=== PATIENT | male | born 1950 | race Caucasian/White ===

== ENCOUNTER 2021-12-26 23:30 | Observation (INO) ==
--- NOTE | 2021-12-26 23:55 | Emergency Department Note ---
Impression & Plan Stroke-like symptom ADMIT ED Provider Note HPI: The patient is a 71-year-old male with history of type 2 diabetes, hyperlipidemia, presents the emergency department with a chief complaint of left-sided weakness and numbness/tingling. Patient states that symptoms began 3.5 hours prior to arrival to the ED. Patient states that his symptoms began as some abnormal movements of his left hand, patient states that he felt like he could not control his left hand. Patient states that he had a tingling sensation radiating from the left side of his neck, states he also had tingling and a sensation "like my arm and leg were going to sleep on the left side". Patient denies any symptoms on his right side. On arrival here to the ED he does display some drift of the lower extremity with testing against gravity, also displays some slight ataxia on [id number] testing on the left side, otherwise he is well-appearing and in no acute distress, he is able to give me a lucid history, he is alert and oriented. ROS: - Neuro: Left-sided numbness/weakness *10 point review systems was conducted and is otherwise negative unless stated above *Outpatient medications and allergy history reviewed PE: General: Alert, NAD HEENT: Normocephalic, atraumatic Eyes: Extraocular eye movement is intact, no scleral erythema Pulmonary: Clear to auscultation bilaterally, no wheezing Cardio: Regular rate and rhythm GI: Abdomen is soft, nontender : No suprapubic tenderness MSK: No evidence of trauma or malformation of the extremities, no edema Skin: No evidence of rash Neuro: Alert, Very slight drift of the left lower extremity with testing against gravity, no drift of the bilateral upper extremities with testing against gravity, slight ataxia noted on [id number] testing on the left side, otherwise patient is with symmetrical facial movements and no other focal deficits Psychiatric: Cooperative quality assurance monitor final: - An order was placed for continuous cardiac monitoring - Patient was noted to be in Sinus rhythm with a rate of 75 ADDENDUM - Added by Sara Felix MD on 12/27/2021 12:50 AM (-07:00) Correction: Moderate nonspecific white matter changes. CT HEAD: No evidence of acute intracranial pathology. Moderate nonspecific oiler changes. No comparisons. Radiologist: Sara Felix MD Study ready at 00:27 and initial results transmitted at 00:30 Communications: Clear Time Type Notes 12/27/21 00:37 [address] Doctor Regarding [address] [place], called Dr. Harrison on 12/27 00:36 (- 04:00) CTA NECK: Negative CT angiogram of the neck. No comparisons. Radiologist: Sara Felix MD Study ready at 00:29 and initial results transmitted at 00:33 Communications: Clear Time Type Notes 12/27/21 00:36 Call Doctor Regarding Str al[place], called Dr. Harrison on 12/27 00:36 (- 04:00) Preliminary Findings Only See Final Report For Complete Findings CTA HEAD: Negative CT angiogram of the head. No comparisons. Radiologist: Sara Felix MD Study ready at 00:27 and initial results transmitted at 00:32 Communications: Clear Time Type Notes 12/27/21 00:36 Call Doctor Regarding Str alden, called Dr. Harrison on 12/27 00:36 (- 04:00) EKG: Rate: 67 Rhythm: Normal sinus rhythm Intervals: Within normal limits ST changes: No ST elevation Time: 0016 NIH STROKE SCALE: 1A: Level of consciousness Alert; keenly responsive 0 1B: Ask month and age Both questions right 0 1C: 'Blink eyes' & 'squeeze hands' Performs both tasks 0 2: Horizontal extraocular movements Normal 0 3: Visual byrne No visual loss 0 4: Facial palsy Normal symmetry 0 5A: Left arm motor drift No drift for 10 seconds 0 5B: Right arm motor drift No drift for 10 seconds 0 6A: Left leg motor drift Drift, but doesn't hit bed +1 6B: Right leg motor drift No drift for 5 seconds 0 7: Limb Ataxia Ataxia in 1 Limb +1 8: Sensation Normal; no sensory loss 0 9: Language/aphasia Normal; no aphasia 0 10: Dysarthria Normal 0 11: Extinction/inattention No abnormality 0 TOTAL NIH SCORE = 2 ADDENDUM - Added by Sara Felix MD on 12/27/2021 12:50 AM (-07:00) Correction: Moderate nonspecific white matter changes. CT HEAD: No evidence of acute intracranial pathology. Moderate nonspecific oiler changes. No comparisons. Radiologist: Sara Felix MD Study ready at 00:27 and initial results transmitted at 00:30 Communications: Clear Time Type Notes 12/27/21 00:37 Call Doctor Regarding Str alden, called Dr. Harrison on 12/27 00:36 (- 04:00) CTA HEAD: Negative CT angiogram of the head. No comparisons. Radiologist: Sara Felix MD Study ready at 00:27 and initial results transmitted at 00:32 Communications: Clear Time Type Notes 12/27/21 00:36 Call Doctor Regarding Str alden, called Dr. Harrison on 12/27 00:36 (- 04:00) CTA NECK: Negative CT angiogram of the neck. No comparisons. Radiologist: Sara Felix MD Study ready at 00:29 and initial results transmitted at 00:33 Communications: Clear Time Type Notes 12/27/21 00:36 Call Doctor Regarding Str alden, called Dr. Harrison on 12/27 00:36 (- 04:00) Medical Decision Making: Patient presented to the emergency department with concerning symptoms for stroke. Stated that he had some weakness and numbness/tingling on the left side of his body in the upper extremity and lower extremity that began approximately 3 to 3.5 hours prior To arrival here to the ED tonight. Shortly after my assessment stroke alert was activated, patient was sent to CT for CT imaging of the head as well as CT angiography. Fortunately this does not show any evidence of intracranial bleeding or evidence of large vessel occlusion. Patient was given an NIH stroke scale score of 2 for some left-sided ataxia as well as some left lower extremity drift. I did discuss the patient's presentation with on- call stroke neurology at [facility], Dr. Marks. Patient symptoms are mild at this time, although he is in the window he does also have a history of intracranial bleeding secondary to an amyloidosis disorder which the patient reports was last noted on imaging 3 years ago at a hospital in [place], [place].Given mild nature of symptoms in addition to history of intracranial b leeding patient is not considered a candidate for thrombolysis. Dr. Marks It expressed to me over the phone that he does have concern the patient likely experienced a lacunar infarct and should be admitted for MRI imaging and secondary stroke work-up. Patient was in agreement to this plan. Rec ommendation was made for the patient to be admitted and to start aspirin therapy. Patient declined aspirin therapy and states he was told not to take this secondary to his history of amyloidosis and intracranial bleeding. Therefore this was not given. On my reassessment the patient is hemodynamically stable, he has not had any worsening in his symptoms, he is in agreement for inpatient admission and likely for MRI imaging and neurology consultation tomorrow morning. [facility] was consulted for admission. * CRITICAL CARE TIME: (50) minutes - Management of strokelike symptoms within thrombolysis window requiring emergent evaluation and bedside NIH stroke scale to be performed, discussion with on-call neurology/stroke specialty service at tertiary care center, time spent at the bedside, arrangement of admission Diagnosis: 1. Strokelike episode 2. Left-sided numbness/tingling of upper extremity and lower extremity 3. Left-sided ataxia of the left upper extremity Disposition: ADMIT Saroj Alaniz DO Emergency Medicine Past Med/Surg History Medical History (Updated 12/27/21 @ 01:29 by Saroj Alaniz DO) Amyloid disease followed with [facility] in past/has not been in contact for a while. BPH (benign prostatic hyperplasia) Diabetes mellitus, type 2 Elevated PSA Fatty liver Hearing deficit History of COVID-19 loss of taste/smell--no issues now 02/2020 HTN (hypertension) Hyperlipidemia Hypothyroidism (acquired) Insect bite (nonvenomous), right ankle, initial encounter Loose bowel movements due to metformin IR Lumbar facet joint syndrome Lumbar spondylosis Mild acid reflux Obesity Osteoarthritis Sleep apnea CPAP Surgical History History of cardiac cath 2001 in [place]--no stents History of colonoscopy History of esophagogastroduodenoscopy (EGD) History of tooth extraction S/P appendectomy S/P cholecystectomy Family History Father Esophageal cancer Colorectal cancer Other No family history of adverse response to anesthesia Denies family history of Ovarian cancer Prostate cancer Myocardial infarction Breast cancer Social History Smoking Status: Former smoker Second Hand Exposure: Yes ( A CHILD); Hx Alcohol Use: Yes Hx Substance Use: No Preferred Language: [place] Communication Ability: Effective Visual Impairment: No Limitations Hearing Ability: Normal 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 Beliefs That Will Affect Care: None marital status: Current Living Situation: Spouse current occupational status: retired Feels Safe at Home: Yes Dental Care, Regularly: Yes Physical Activity Frequency: 1-2 Times per Week Seatbelt Use: always Assistive Devices: CPAP, Glasses and Hearing Aid - Bilateral Allergies Allergies Allergy/AdvReac Type Severity Reaction Status Date / Time aspirin AdvReac Severe contraindic Verified 12/13/21 13:13 ated Home Meds Home Medications Medication Instructions Recorded Confirmed magnesium oxide 500 mg capsule 500 mg PO DAILYBB 03/18/20 12/27/21 multivitamin 1 tab PO QPM 03/18/20 12/27/21 zinc 50 mg tablet 50 mg PO QPM 03/18/20 12/27/21 riboflavin (vitamin B2) 400 mg 400 mg PO QDL 08/19/20 12/27/21 tablet cholecalciferol (vitamin D3) 125 125 mcg PO DAILY 07/21/21 12/27/21 mcg (5,000 unit) tablet (Vitamin D3) cyanocobalamin (vitamin B-12) 1,000 mcg PO DAILY 07/21/21 12/27/21 1,000 mcg tablet naproxen sodium 220 mg capsule 220 mg PO BID PRN Pain 07/21/21 12/27/21 (Aleve) tamsulosin 0.4 mg capsule (Flomax) 0.8 mg PO QPM 12/27/21 12/27/21 Previous Rx's Medication Instructions Recorded atorvastatin 40 mg tablet (Lipitor) 40 mg PO QPM #90 tabs 05/10/21 gabapentin 100 mg capsule 100 mg PO DAILY PRN headaches #30 05/10/21 caps levothyroxine 150 mcg tablet 150 mcg PO QAM #90 tabs 05/10/21 liothyronine 5 mcg tablet (Cytomel) 5 mcg PO DAILYBB #90 tabs 05/10/21 metformin 500 mg tablet,extended 1,000 mg PO BID #180 tabs 05/10/21 release 24 hr pantoprazole 40 mg tablet,delayed 40 mg PO BID #180 tabs 07/15/21 release lancets 30 gauge (BD Ultra-Fine II #100 ea 08/18/21 Lancets) amlodipine 10 mg-benazepril 20 mg 1 cap PO QAM #90 caps 08/29/21 capsule (Lotrel) semaglutide 0.25 mg or 0.5 mg (2 0.5 mg (0.4 mL) subcut WK #1.5 mL 09/13/21 mg/1.5 mL) subcutaneous pen injector (Ozempic) Results & Data (ED) Vital Signs Vital Signs - 24 hr 12/26/21 23:33 12/27/21 00:52 Temperature 37.0 C Temperature Source Temporal Artery Scan Pulse Rate 73 Pulse Rate [Apical] 73 Respiratory Rate 18 18 Respiratory Depth Normal Normal Blood Pressure 135/84 Blood Pressure [Right Arm] 157/85 H Blood Pressure Mean 101 Blood Pressure Mean [Right Arm] 109 Pulse Oximetry 98 98 Oxygen Delivery Method Room Air Room Air Sepsis New/Unexplained Change in Mental Status N/A Sepsis Action Taken by Nursing No Action Required Laboratory Data Result diagrams: 12/27/21 00:02 12/27/21 00:02 Lab Results 12/27/21 12/27/21 12/27/21 Range/Units 00:02 00:02 00:02 WBC 7.03 (4.8-10.8) K/ul RBC 4.45 L (4.63-6.08) M/uL Hgb 13.2 L (14.0-18.0) g/dl Hct 39.7 L (40.1-51.0) % MCV 89.2 (80.0-100.0) fL MCH 29.7 (25.0-34.0) pg MCHC 33.2 (32.0-36.0) g/dL RDW Std Deviation 41.8 (36.4-46.3) fL RDW Coeff of Nanda 12.9 (11.5-14.5) % Plt Count 188 (130-400) K/uL MPV 9.6 (9.4-12.4) fL Immature Gran % (Auto) 0.6 % Neut % (Auto) 50.8 % Lymph % (Auto) 38.1 % [place] % (Auto) 8.1 % Eos % (Auto) 1.7 % Baso % (Auto) 0.7 % Neut # (Auto) 3.57 (1.4-6.5) K/uL Lymph # (Auto) 2.68 (1.2-3.4) K/uL [place] # (Auto) 0.57 (0.24-0.82) K/uL Eos # (Auto) 0.12 (0-0.50) K/uL Baso # (Auto) 0.05 (0-0.2) K/uL Immature Gran # (Auto) 0.04 H (0.00-0.02) K/uL PT 10.7 (9.0-12.0) Seconds INR 1.0 (0.9-1.1) APTT 28.0 (21.0-31.0) Seconds PTT Ratio 1.0 Sodium 139 (136-145) mmol/L Potassium 3.8 (3.5-5.1) mmol/L Chloride 105 (98-107) mmol/L Carbon Dioxide 27 (21-32) mmol/L Anion Gap 7 (3-11) BUN 18 (6-23) mg/dl Creatinine 1.06 (0.6-1.4) mg/dl Est Cr Clr Drug Dosing 81.0 ml/min Est GFR ( Amer) 82.6 ml/min Est GFR (Non-Af Amer) 71.3 ml/min BUN/Creatinine Ratio 17.0 (10-20) Glucose 129 H (70-99(Fasting)) mg/dl Calcium 9.7 (8.5-10.1) mg/dl Magnesium 1.7 (1.7-2.4) mg/dl Total Bilirubin 0.4 (0.2-1.0) mg/dl AST 14 (13-39) U/L ALT 32 (7-52) U/L Alkaline Phosphatase 79 (34-104) U/L Troponin I High Sens 2.5 (0-20) pg/ml Total Protein 6.4 (6.0-8.3) gm/dl Albumin 4.3 (3.4-5.0) gm/dl Globulin 2.1 L (2.5-4.0) gm/dl Albumin/Globulin Ratio 2.0 (0.9-2) SARS-CoV-2, RNA, NAAT (NEGATIVE) 12/27/21 Range/Units 00:33 WBC (4.8-10.8) K/ul RBC (4.63-6.08) M/uL Hgb (14.0-18.0) g/dl Hct (40.1-51.0) % MCV (80.0-100.0) fL MCH (25.0-34.0) pg MCHC (32.0-36.0) g/dL RDW Std Deviation (36.4-46.3) fL RDW Coeff of Nanda (11.5-14.5) % Plt Count (130-400) K/uL MPV (9.4-12.4) fL Immature Gran % (Auto) % Neut % (Auto) % Lymph % (Auto) % [place] % (Auto) % Eos % (Auto) % Baso % (Auto) % Neut # (Auto) (1.4-6.5) K/uL Lymph # (Auto) (1.2-3.4) K/uL [place] # (Auto) (0.24-0.82) K/uL Eos # (Auto) (0-0.50) K/uL Baso # (Auto) (0-0.2) K/uL Immature Gran # (Auto) (0.00-0.02) K/uL PT (9.0-12.0) Seconds INR (0.9-1.1) APTT (21.0-31.0) Seconds PTT Ratio Sodium (136-145) mmol/L Potassium (3.5-5.1) mmol/L Chloride (98-107) mmol/L Carbon Dioxide (21-32) mmol/L Anion Gap (3-11) BUN (6-23) mg/dl Creatinine (0.6-1.4) mg/dl Est Cr Clr Drug Dosing ml/min Est GFR ( Amer) ml/min Est GFR (Non-Af Amer) ml/min BUN/Creatinine Ratio (10-20) Glucose (70-99(Fasting)) mg/dl Calcium (8.5-10.1) mg/dl Magnesium (1.7-2.4) mg/dl Total Bilirubin (0.2-1.0) mg/dl AST (13-39) U/L ALT (7-52) U/L Alkaline Phosphatase (34-104) U/L Troponin I High Sens (0-20) pg/ml Total Protein (6.0-8.3) gm/dl Albumin (3.4-5.0) gm/dl Globulin (2.5-4.0) gm/dl Albumin/Globulin Ratio (0.9-2) SARS-CoV-2, RNA, NAAT NEGATIVE (NEGATIVE) Administered Medications Discontinued Medications Ioversol (Optiray 300 500ml) 125 ml IV ONCE ONE Stop: 12/27/21 00:20 Last Admin: 12/27/21 00:19 Dose: 112 ml Documented By: GUILLE Discharge Plan Visit Data Chief Complaint: Neck Injury/Pain Stated Complaint: PAIN IN LFT SIDE OF NECK GOING DOWN ARM TO LEG ED Provider: Saroj Alaniz Discharge Problem: Stroke-like symptom Forms Stand Alone Forms: My [facility] Prescriptions Prescriptions: No Action riboflavin (vitamin B2) 400 mg tablet 400 mg PO QDL pantoprazole 40 mg tablet,delayed release (DR/EC) 40 mg PO BID Qty: 180 1RF amlodipine-benazepril [Lotrel] 10-20 mg capsule 1 cap PO QAM Qty: 90 3RF (DME) lancets [BD Ultra-Fine II Lancets] 30 gauge misc See Rx Instructions .Route Qty: 100 0RF Rx Instructions: As directed Ozempic 0.25 mg or 0.5 mg(2 mg/1.5 mL) pen injector 0.5 mg subcut WK Qty: 1.5 5RF Rx Instructions: q Sunday gabapentin 100 mg capsule 100 mg PO DAILY PRN (Reason: headaches) Qty: 30 2RF levothyroxine 150 mcg tablet 150 mcg PO QAM Qty: 90 1RF atorvastatin [Lipitor] 40 mg tablet 40 mg PO QPM Qty: 90 3RF liothyronine [Cytomel] 5 mcg tablet 5 mcg PO DAILYBB Qty: 90 1RF metformin 500 mg tablet extended release 24 hr 1,000 mg PO BID Qty: 180 3RF zinc 50 mg Tablet 50 mg PO QPM magnesium oxide 500 mg Capsule 500 mg PO DAILYBB multivitamin Tablet 1 tab PO QPM cyanocobalamin (vitamin B-12) 1,000 mcg Tablet 1,000 mcg PO DAILY cholecalciferol (vitamin D3) [Vitamin D3] 125 mcg (5,000 unit) Tablet 125 mcg PO DAILY naproxen sodium [Aleve] 220 mg Capsule 220 mg PO BID PRN (Reason: Pain) tamsulosin [Flomax] 0.4 mg capsule 0.8 mg PO QPM Referrals Referrals: Rosy Montoya MD [Primary Care Provider] -
[2021-12-27] MEDS ORDERED: OPTIRAY 300 500mL IV ONE (00:19)
[2021-12-27 00:22] LABS: Basophils # (auto) 0.05 K/uL (0-0.2); Basophils % (auto) 0.7 %; Eosinophils # (auto) 0.12 K/uL (0-0.50); Eosinophils % (auto) 1.7 %; Hematocrit (blood only) 39.7 % (40.1-51.0); Hemoglobin 13.2 g/dl (14.0-18.0); Immature Granulocytes # (auto) 0.04 K/uL (0.00-0.02); Immature Granulocytes % (auto) 0.6 %; Lymphocytes # (auto) 2.68 K/uL (1.2-3.4); Lymphocytes % (auto) 38.1 %; Mean Corpuscular Hemoglobin 29.7 pg (25.0-34.0); Mean Corpuscular Hgb Conc 33.2 g/dL (32.0-36.0); Mean Corpuscular Volume 89.2 fL (80.0-100.0); Mean Platelet Volume 9.6 fL (9.4-12.4); Monocytes # (auto) 0.57 K/uL (0.24-0.82); Monocytes % (auto) 8.1 %; Neutrophils # (auto) 3.57 K/uL (1.4-6.5); Neutrophils % (auto) 50.8 %; Platelet Count 188 K/uL (130-400); RDW Coefficient of Variation 12.9 % (11.5-14.5); RDW Standard Deviation 41.8 fL (36.4-46.3); Red Blood Count 4.45 M/uL (4.63-6.08); White Blood Count 7.03 K/ul (4.8-10.8)
[2021-12-27 00:36] LABS: Prothrombin Time 10.7 Seconds (9.0-12.0)
[2021-12-27 00:47] LABS: Troponin I High Sensitivity 2.5 pg/ml (0-20)
[2021-12-27 00:58] LABS: Albumin Level 4.3 gm/dl (3.4-5.0); Bilirubin,Total 0.4 mg/dl (0.2-1.0); Calcium 9.7 mg/dl (8.5-10.1); Est GFR (African American) 82.6 ml/min; Est GFR (Non-African American) 71.3 ml/min; Globulin 2.1 gm/dl (2.5-4.0); Magnesium 1.7 mg/dl (1.7-2.4); Potassium 3.8 mmol/L (3.5-5.1); Total Protein 6.4 gm/dl (6.0-8.3)
[2021-12-27] MEDS ORDERED: ACETAMINOPHEN 325 MG TAB PO PRN (04:31)
[2021-12-27] MEDS ORDERED: DEXTROSE 50% 50 ML SYRINGE IV PRN (04:31)
[2021-12-27] MEDS ORDERED: PHARMACIST DISCHARGE MED REC CONSULT PRN (04:31)
[2021-12-27] MEDS ORDERED: GLUCOSE 40% GEL 15 GM TUBE PO PRN (04:31)
[2021-12-27] MEDS ORDERED: GABAPENTIN 100 MG CAP PO PRN (04:31)
[2021-12-27] MEDS ORDERED: ONDANSETRON INJ 2 MG/ML 2 ML VIAL IV PRN (04:31)
[2021-12-27] MEDS ORDERED: GLUCAGON FOR INJ 1 MG VIAL SQ PRN (04:31)
[2021-12-27] MEDS ORDERED: CARBOHYDRATES FOR HYPOGLYCEMIA PO PRN (04:31)
[2021-12-27] MEDS ORDERED: GLUCOSE 10 TAB/TUBE PO PRN (04:31)
--- NOTE | 2021-12-27 04:33 | History & Physical Report ---
Date of Service December 27, 2021 Assessment & Plan (1) Stroke-like symptom: Plan: Left-sided numbness and paresthesias/strokelike symptoms/history of hemorrhagic CVA with amyloid disease- [place] [facility]. Thought to have a CVA, but is not a candidate for treatment due to previous hemorrhagic CVA CT head negative, CTA head/neck negative He reports being told in the past that he should not be on aspirin due to his blood thinning effects, however, he has naproxen also listed as part of his medication list which he takes, and will hold the naproxen for now He describes intermittent left shoulder discomfort, and more concentrated numbness in his third, fourth and fifth finger on the left side Order MRI of brain, and MRI cervical spine Consult neurology as requested by [facility] [place] (2) Left sided numbness: Plan: See above (3) Amyloid disease: Plan: Reportedly followed by study group at [facility] (4) Diabetes mellitus: Plan: Hold metformin and semaglutide (5) Reflux esophagitis: Plan: Continue pantoprazole 40 mg twice daily (6) Hypothyroidism (acquired): Plan: Continue levothyroxine 150 mcg daily and liothyronine 5 mcg daily (7) Hyperlipidemia: Plan: Continue atorvastatin 40 mg every evening Check a fasting lipid panel (8) HTN (hypertension): Plan: Permissive hypertension (9) BPH (benign prostatic hyperplasia): Plan: Continue tamsulosin 0.8 mg daily in the evening (10) Sleep apnea: Plan: CPAP at bedtime 9 cmH2O History of Present Illness Chief Complaint: The patient presents to the emergency department due to complaint of the acute onset of left hand numbness and tingling like it was falling asleep, left shoulder pain, followed by numbness and tingling in his left leg, while he was watching Sunday Night football Primary Care Provider: Rosy Montoya MD The patient is a 71-year-old male with a past medical history including thoracic vertebral compression fractures, diabetes mellitus, right parotid gland mass, cerebral micro vasculopathy, lumbar degenerative disc disease, reflux esophagitis, fatty liver, sleep apnea with CPAP 9 cm setting, lumbar facet joint syndrome, amyloid disease causing hemorrhagic CVA, hypertension, hyperlipidemia and hypothyroidism. The patient was initially assessed by the ED as a stroke alert, with supervision by [facility] telestroke neurology, who determined that the patient likely had a stroke, but was not a candidate for intervention due to previous history of hemorrhagic CVA. Allergies Allergy/AdvReac Type Severity Reaction Status Date / Time aspirin AdvReac Severe contraindic Verified 12/13/21 13:13 ated Home Medications Medication Instructions Recorded Confirmed Type magnesium oxide 500 mg capsule 500 mg PO DAILYBB 03/18/20 12/27/21 History multivitamin 1 tab PO QPM 03/18/20 12/27/21 History zinc 50 mg tablet 50 mg PO QPM 03/18/20 12/27/21 History riboflavin (vitamin B2) 400 mg 400 mg PO QDL 08/19/20 12/27/21 History tablet atorvastatin 40 mg tablet (Lipitor) 40 mg PO QPM #90 tabs 05/10/21 12/27/21 Rx gabapentin 100 mg capsule 100 mg PO DAILY PRN headaches #30 05/10/21 12/27/21 Rx caps levothyroxine 150 mcg tablet 150 mcg PO QAM #90 tabs 05/10/21 12/27/21 Rx liothyronine 5 mcg tablet (Cytomel) 5 mcg PO DAILYBB #90 tabs 05/10/21 12/27/21 Rx metformin 500 mg tablet,extended 1,000 mg PO BID #180 tabs 05/10/21 12/27/21 Rx release 24 hr pantoprazole 40 mg tablet,delayed 40 mg PO BID #180 tabs 07/15/21 12/27/21 Rx release cholecalciferol (vitamin D3) 125 125 mcg PO DAILY 07/21/21 12/27/21 History mcg (5,000 unit) tablet (Vitamin D3) cyanocobalamin (vitamin B-12) 1,000 mcg PO DAILY 07/21/21 12/27/21 History 1,000 mcg tablet naproxen sodium 220 mg capsule 220 mg PO BID PRN Pain 07/21/21 12/27/21 History (Aleve) lancets 30 gauge (BD Ultra-Fine II #100 ea 08/18/21 12/27/21 Rx Lancets) amlodipine 10 mg-benazepril 20 mg 1 cap PO QAM #90 caps 08/29/21 12/27/21 Rx capsule (Lotrel) semaglutide 0.25 mg or 0.5 mg (2 0.5 mg (0.4 mL) subcut WK #1.5 mL 09/13/21 12/27/21 Rx mg/1.5 mL) subcutaneous pen injector (Ozempic) tamsulosin 0.4 mg capsule (Flomax) 0.8 mg PO QPM 12/27/21 12/27/21 History Past Med/Surg History Medical History (Updated 12/27/21 @ 04:41 by Shelton Rocha MD) Amyloid disease followed with [facility] in past/has not been in contact for a while. BPH (benign prostatic hyperplasia) Diabetes mellitus, type 2 Elevated PSA Fatty liver Hearing deficit History of COVID-19 loss of taste/smell--no issues now 02/2020 HTN (hypertension) Hyperlipidemia Hypothyroidism (acquired) Insect bite (nonvenomous), right ankle, initial encounter Loose bowel movements due to metformin IR Lumbar facet joint syndrome Lumbar spondylosis Mild acid reflux Obesity Osteoarthritis Sleep apnea CPAP Surgical History History of cardiac cath 2000 in [place]--no stents History of colonoscopy History of esophagogastroduodenoscopy (EGD) History of tooth extraction S/P appendectomy S/P cholecystectomy Family History Father Esophageal cancer Colorectal cancer Other No family history of adverse response to anesthesia Denies family history of Ovarian cancer Prostate cancer Myocardial infarction Breast cancer Social History Smoking Status: Former smoker Second Hand Exposure: Yes ( A CHILD); Hx Alcohol Use: Yes Hx Substance Use: No Preferred Language: Tanzanian Communication Ability: Effective Visual Impairment: No Limitations Hearing Ability: Normal Photographic Spotter Required: No Beliefs That Will Affect Care: None marital status: Current Living Situation: Spouse current occupational status: retired Feels Safe at Home: Yes Dental Care, Regularly: Yes Physical Activity Frequency: 1-2 Times per Week Seatbelt Use: always Assistive Devices: CPAP, Glasses and Hearing Aid - Bilateral Review of Systems Review of Systems: The patient denies chest pain, palpitations, shortness of breath, dyspnea on exertion, cough, lower extremity swelling, sore throat, fevers, chills, sweats, weight change, fatigue, nausea, vomiting, diarrhea , constipation, abdominal pain, pelvic pain, blood in urine or stool, dysuria, urinary frequency or urgency, lightheadedness, dizziness or headache, memory loss, loss of consciousness, rash, abnormal bruising or bleeding, imbalance, focal or generalized weakness, numbness or tingling right arm or leg, generalized arthralgias or myalgias, or night sweats. The review of systems is otherwise negative other than for that already noted above, and at least 10 systems have been reviewed. Physical Exam Physical Exam: The patient is awake, alert and oriented 3, well developed and well nourished, normocephalic and atraumatic, lying in bed and in no acute d istress. HEENT--PERRL, EOMI, mucous membranes and oropharynx normal. Neck--supple. No JVD. No bruits. Thyroid normal, trachea midline, no adenopathy. Heart--normal S1 and S2. No murmurs, rubs or gallops. Lungs--clear bilaterally, no respiratory distress, no accessory muscle use. Abdomen--normal bowel sounds and soft. Nontender. Nondistended, no hernias or masses, no organomegaly. Obese Extremities--no cyanosis or clubbing. No edema. Dermatologic--normal skin turgor, normal color, no abnormal lymph nodes, no rash. Neurologic--cranial nerves II through XII grossly intact. Rheumatologic--normal range of motion. Psychiatric--normal affect. Results & Data Results & Data ([facility]) Vital Signs (Past 12 Hours) Vital Signs Temp Pulse Pulse Resp BP BP Pulse Ox 12/27/21 03:11 68 18 148/84 H 94 12/27/21 02:14 67 16 123/75 97 12/27/21 00:52 73 18 157/85 H 98 12/26/21 23:33 37.0 C 73 18 135/84 98 O2 Del Method 12/27/21 03:11 Room Air 12/27/21 02:14 Room Air 12/27/21 00:52 Room Air 12/26/21 23:33 Room Air Laboratory Results Laboratory Results WBC 7.03 K/ul (4.8-10.8) 12/27/21 00:02 RBC 4.45 M/uL (4.63-6.08) L 12/27/21 00:02 Hgb 13.2 g/dl (14.0-18.0) L 12/27/21 00:02 Hct 39.7 % (40.1-51.0) L 12/27/21 00:02 MCV 89.2 fL (80.0-100.0) 12/27/21 00:02 MCH 29.7 pg (25.0-34.0) 12/27/21 00:02 MCHC 33.2 g/dL (32.0-36.0) 12/27/21 00:02 RDW Std Deviation 41.8 fL (36.4-46.3) 12/27/21 00:02 RDW Coeff of Nanda 12.9 % (11.5-14.5) 12/27/21 00:02 Plt Count 188 K/uL (130-400) 12/27/21 00:02 MPV 9.6 fL (9.4-12.4) 12/27/21 00:02 Immature Gran % (Auto) 0.6 % 12/27/21 00:02 Neut % (Auto) 50.8 % 12/27/21 00:02 Lymph % (Auto) 38.1 % 12/27/21 00:02 [place] % (Auto) 8.1 % 12/27/21 00:02 Eos % (Auto) 1.7 % 12/27/21 00:02 Baso % (Auto) 0.7 % 12/27/21 00:02 Neut # (Auto) 3.57 K/uL (1.4-6.5) 12/27/21 00:02 Lymph # (Auto) 2.68 K/uL (1.2-3.4) 12/27/21 00:02 [place] # (Auto) 0.57 K/uL (0.24-0.82) 12/27/21 00:02 Eos # (Auto) 0.12 K/uL (0-0.50) 12/27/21 00:02 Baso # (Auto) 0.05 K/uL (0-0.2) 12/27/21 00:02 Immature Gran # (Auto) 0.04 K/uL (0.00-0.02) H 12/27/21 00:02 PT 10.7 Seconds (9.0-12.0) 12/27/21 00:02 INR 1.0 (0.9-1.1) 12/27/21 00:02 APTT 28.0 Seconds (21.0-31.0) 12/27/21 00:02 PTT Ratio 1.0 12/27/21 00:02 Sodium 139 mmol/L (136-145) 12/27/21 00:02 Potassium 3.8 mmol/L (3.5-5.1) 12/27/21 00:02 Chloride 105 mmol/L (98-107) 12/27/21 00:02 Carbon Dioxide 27 mmol/L (21-32) 12/27/21 00:02 Anion Gap 7 (3-11) 12/27/21 00:02 BUN 18 mg/dl (6-23) 12/27/21 00:02 Creatinine 1.06 mg/dl (0.6-1.4) 12/27/21 00:02 Est Cr Clr Drug Dosing 81.0 ml/min 12/27/21 00:02 Est GFR ( Amer) 82.6 ml/min 12/27/21 00:02 Est GFR (Non-Af Amer) 71.3 ml/min 12/27/21 00:02 BUN/Creatinine Ratio 17.0 (10-20) 12/27/21 00:02 Glucose 129 mg/dl (70-99(Fasting)) H 12/27/21 00:02 Calcium 9.7 mg/dl (8.5-10.1) 12/27/21 00:02 Magnesium 1.7 mg/dl (1.7-2.4) 12/27/21 00:02 Total Bilirubin 0.4 mg/dl (0.2-1.0) 12/27/21 00:02 AST 14 U/L (13-39) 12/27/21 00:02 ALT 32 U/L (7-52) 12/27/21 00:02 Alkaline Phosphatase 79 U/L (34-104) 12/27/21 00:02 Troponin I High Sens 2.5 pg/ml (0-20) 12/27/21 00:02 Total Protein 6.4 gm/dl (6.0-8.3) 12/27/21 00:02 Albumin 4.3 gm/dl (3.4-5.0) 12/27/21 00:02 Globulin 2.1 gm/dl (2.5-4.0) L 12/27/21 00:02 Albumin/Globulin Ratio 2.0 (0.9-2) 12/27/21 00:02 SARS-CoV-2, RNA, NAAT NEGATIVE (NEGATIVE) 12/27/21 00:33 Diagnostic Findings [facility] Patient: MICHELLE MOON (Male) : 54 Status: ER Date: 12/27/21 00:22 Room #: History: NUMBNESS ON LEFT SIDE OF BODY Slices:A 67 Priors: Tech: AngelaTrue chaparro @ [phone] Exams: CT HEAD Contrast: Accession Numbers: [id number] Referring Physician: REFERRED SELF Preliminary Findings Only See Final Report For Complete Findings ADDENDUM - Added by Sara Felix MD on 12/27/2021 12:50 AM (-07:00) Correction: Moderate nonspecific white matter changes. CT HEAD: No evidence of acute intracranial pathology. Moderate nonspecific oiler changes. No comparisons. Radiologist: Sara Felix MD Study ready at 00:27 and initial results transmitted at 00:30 Communications: Clear Time Type Notes 12/27/21 00:37 Call Doctor Regarding Regine ruano, called Dr. Harrison on 12/27 00:36 (-04:00) *This report constitutes a preliminary interpretation only. Non-acute findings felt to be unrelated to the clinical presentation may not be discussed in this report. The study will be interpreted and a final report will be generated by the local Radiologist the following shift. To reach the hospital radiology department call [phone]. If a discrepancy is found between the preliminary and final interpretations of this study, please notify us via our Client Portal at [email or web address], under QA Exams. You can also fax this report with a description of the discrepancy, or include the final report, to our daytime fax number [phone]. If faxing, please indicate the severity of discrepancy using one of the following categories: [ ] 1 - Agree/Informational [ ] 2 - Unlikely to Affect Management [ ] 3 - Possible Eventual Change of Management [ ] 4 - Probable Immediate Change of Management For all other patient related information, please fax us at [phone]. [id number] [facility] Patient: MICHELLE MOON (Male) : 54 Status: ER Date: 12/27/21 00:22 Room #: History: NUMBNESS ON LEFT SIDE OF BODY Slices: 518 Priors: Arley: True Oglesby @ [phone] Exams: CTA HEAD Contrast: IV Amt: 112 ML OPTIRAY 300 Accession Numbers: [id number] Referring Physician: REFERRED SELF Preliminary Findings Only See Final Report For Complete Findings CTA HEAD: Negative CT angiogram of the head. No comparisons. Radiologist:Mahamed Felix MD Study ready at 00:27 and initial results transmitted at 00:32 Communications: Clear Time Type Notes 12/27/21 00:36 Call Doctor Jenelle Regine ruano, called Dr. Harrison on 12/27 00:36 (-04:00) *This report constitutes a preliminary interpretation only. Non-acute findings felt to be unrelated to the clinical presentation may not be discussed in this report. The study will be interpreted and a final report will be generated by the local Radiologist the following shift. To reach the [facility] radiology department call [phone]. If a discrepancy is found between the preliminary and final interpretations of this study, please notify us via our Client Portal at [email or web address], under QA Exams. You can also fax this report with a description of the discrepancy, or include the final report, to our daytime fax number [phone]. If faxing, please indicate the severity of discrepancy using one of the following categories: [ ] 1 - Agree/Informational [ ] 2 - Unlikely to Affect Management [ ] 3 - Possible Eventual Change of Management [ ] 4 - Probable Immediate Change of Management For all other patient related information, please fax us at [phone]. [id number] [facility] Patient: MICHELLE MOON (Male) : 54 Status: ER Date: 12/27/21 00:23 Room #: History: NUMBNESS ON LEFT SIDE OF BODY Slices: 708 Priors: Arley: True Oglesby @ [phone] Exams: CTA NECK Contrast: IV Amt: 112 ML OPTIRAY 300 Accession Numbers: [id number] Referring Physician: REFERRED SELF Preliminary Findings Only See Final Report For Complete Findings CTA NECK: Negative CT angiogram of the neck. No comparisons. Radiologist: Sara Felix MD Study ready at 00:29 and initial results transmitted at 00:33 Communications: Clear Time Type Notes 12/27/21 00:36 Call Doctor Regarding Regine alden, called Dr. Harrison on 12/27 00:36 (-04:00) *This report constitutes a preliminary interpretation only. Non-acute findings felt to be unrelated to the clinical presentation may not be discussed in this report. The study will be interpreted and a final report will be generated by the local Radiologist the following shift. To reach the [facility] radiology department call [phone]. If a discrepancy is found between the preliminary and final interpretations of this study, please notify us via our Client Portal at [email or web address], under QA Exams. You can also fax this report with a description of the discrepancy, or include the final report, to brandon almanzar fax number [phone]. If faxing, please indicate the severity of discrepancy using one of the following categories: [ ] 1 - Agree/Informational [ ] 2 - Unlikely to Affect Management [ ] 3 - Possible Eventual Change of Management [ ] 4 - Probable Immediate Change of Management For all other patient related information, please fax us at [phone]. [id number] Code Status & VTE Plan Code Status Full code VTE Prophylaxis Plan VTE Prophylaxis will be ordered: Yes PG Care Time/CCT Total # of Minutes Spent Total Time Spent with Patient: Total time spent is greater than 50% in coordination of care (as documented) at patient's floor/unit and/or counseling patient: Coding Level of Care Code INT OBSERVATION CARE 72M LVL 3 Diagnoses Stroke-like symptom R29.90 Left sided numbness R20.0 Amyloid disease E85.9 Diabetes mellitus E11.9 Reflux esophagitis K21.00 Hypothyroidism (acquired) E03.9 Hyperlipidemia E78.5 HTN (hypertension) I10 BPH (benign prostatic hyperplasia) N40.0 Sleep apnea G47.30
[2021-12-27 04:53] LABS: Basophils # (auto) 0.03 K/uL (0-0.2); Basophils % (auto) 0.5 %; Eosinophils # (auto) 0.13 K/uL (0-0.50); Eosinophils % (auto) 2.2 %; Hematocrit (blood only) 40.8 % (40.1-51.0); Hemoglobin 13.8 g/dl (14.0-18.0); Immature Granulocytes # (auto) 0.04 K/uL (0.00-0.02); Immature Granulocytes % (auto) 0.7 %; Lymphocytes # (auto) 2.24 K/uL (1.2-3.4); Lymphocytes % (auto) 37.9 %; Mean Corpuscular Hemoglobin 29.9 pg (25.0-34.0); Mean Corpuscular Hgb Conc 33.8 g/dL (32.0-36.0); Mean Corpuscular Volume 88.5 fL (80.0-100.0); Mean Platelet Volume 9.3 fL (9.4-12.4); Monocytes # (auto) 0.43 K/uL (0.24-0.82); Monocytes % (auto) 7.3 %; Neutrophils # (auto) 3.04 K/uL (1.4-6.5); Neutrophils % (auto) 51.4 %; Platelet Count 180 K/uL (130-400); RDW Coefficient of Variation 12.9 % (11.5-14.5); RDW Standard Deviation 41.7 fL (36.4-46.3); Red Blood Count 4.61 M/uL (4.63-6.08); White Blood Count 5.91 K/ul (4.8-10.8)
[2021-12-27 05:03] LABS: Prothrombin Time 10.8 Seconds (9.0-12.0)
[2021-12-27 05:18] LABS: Albumin Globulin Ratio 2.2 (0.9-2); Albumin Level 4.3 gm/dl (3.4-5.0); BUN Creatinine Ratio 17.3 (10-20); Bilirubin,Total 0.4 mg/dl (0.2-1.0); Calcium 9.5 mg/dl (8.5-10.1); Chol HDL Ratio 3.2 (0-5); Creatinine Clr Calc Pharmacy 89.1 ml/min; Est GFR (African American) 90.8 ml/min; Est GFR (Non-African American) 78.4 ml/min; Total Protein 6.3 gm/dl (6.0-8.3)
[2021-12-27 05:24] LABS: Troponin I High Sensitivity 2.8 pg/ml (0-20)
[2021-12-27] MEDS: MAGNESIUM OXIDE 400 MG TAB PO SCH (06:19)
[2021-12-27] MEDS: LIOTHYRONINE SODIUM 5 MCG TAB PO SCH (06:19)
[2021-12-27] MEDS: LEVOTHYROXINE SODIUM 150 MCG TABLET PO SCH (06:20)
--- NOTE | 2021-12-27 07:11 | CT Scan Report ---
HEAD CT NONCONTRAST CT DOSE: HISTORY: Left-sided numbness. Stroke Like Symptoms TECHNIQUE: Multiaxial CT images of the head were performed without the use of intravenous contrast. A utomated exposure control was utilized for this study. A dose lowering technique was utilized adheri ng to the principles of ALARA. Comparison: None. Findings: The paranasal sinuses and mastoid air cells are clear. The calvarium and skull base are int act. There is no mass, hematoma, midline shift, acute infarct. White matter hypodensity is nonspecifi c but suggestive of microvascular ischemic change. The ventricles and sulci demonstrate mild age-rela manisha involutional changes. Impression: No acute intracranial abnormality. Atrophy and microvascular ischemic changes. ACT 112: Negative or not required by law. Electronically signed by: Phil Velasco M.D. 12/27/2021 7:08 AM
--- NOTE | 2021-12-27 07:14 | CT Scan Report ---
CT angio neck with con, CT angio head w con CLINICAL HISTORY: 71 years-old Male with Stroke Like Symptoms. Acute strokelike symptoms COMPARISON STUDY: Brain MRI 12/27/2021, chest CT 06/18/2020, 03/18/2020 TECHNIQUE: Following the IV admi nistration of 112 mL of Optiray, CT angiogram of the head and neck was performed from the aortic arch to the skull apex. Images are reviewed in the axial, sagittal, and coronal planes. 3-D MIPS images a re created and assessed. IV contrast was administered without complication. All measurements were marshall culated based on NASCET criteria. A dose lowering technique was utilized adhering to the principles of ALARA. CT DOSE: 1276.24 mGy.cm FINDINGS: Age-related involutional changes with chronic microvascular ischemic disease. Three-vessel morphology of the thoracic aortic arch. Patency of the innominate and imaged subclavian arteries. The common and internal carotid arteries are patent. There is atherosclerotic plaque of the left greater than right carotid bulbs and proximal cervical segments of the internal carotid arterie s without significant stenosis. The middle and anterior cerebral arteries are patent. Dominant left v ertebral artery. Developmentally diminutive right vertebral artery. The basilar and posterior cerebra l arteries are widely patent. Cerebral venous sinuses are patent. There is no abnormal intracranial e nhancement. No aneurysm, dissection, high-grade stenosis or arterial occlusion. Lung apices are clear without pneumothorax. Mild pulmonary emphysema. There are a few tiny subpleural nodular foci of the lung apices measuring up to 4 mm which are likely benign. 6 mm groundglass nodul e of the left upper lobe, image 36. 9 mm hypodense left-sided thyroid nodule. Degenerative changes of the cervical spine. IMPRESSION: 1. No aneurysm, dissection, high-grade stenosis or arterial occlusion. 2. 6 mm groundglass nodule of the left upper lobe is stable compared to the 06/18/2020 study. Please refer to below summary of Fleischner criteria recommendations for follow-up of incidental CT n odules (Mahamed Hidalgo, Guidelines for management of small pulmonary nodules detected on CT scans: A sta tement from the Fleischner Society, Radiology 237: [phone].) Note: newly detected indeterminate nodule in persons 35 years of age or older. * Low risk patients: minimal or absent history of smoking and/or other known risk factors * high risk patients: history of smoking or of other known risk factors (e.g. first degree relative with lung cancer, or exposure to asbestos, radon, uranium) * if a nodule up to 8 mm is partly solid or is ground glass further follow-up is required after 24 m onths to exclude possible slow growing adenocarcinoma (HUSSAIN) SUBSOLID NODULES Solitary pure ground-glass nodule * nodule size <6 mm - no CT follow-up required * nodule size >=6 mm - follow-up CT at 6-12 months, then every 2 years until 5 years ACT 112: Negative or not required by law. The above report was generated using voice recognition software. It may contain grammatical, syntax o r spelling errors. Electronically signed by: Neno Santoyo M.D. 12/27/2021 7:13 AM
--- NOTE | 2021-12-27 07:26 | Magnetic Resonance Report ---
Brain MRI WITHOUT CONTRAST HISTORY: Stroke-like symptoms TECHNIQUE: Multiplanar multisequence MRI of the brain was performed without the use of contrast. COMPARISON STUDY: Head CT 12/27/2021. FINDINGS: There is no mass, hematoma, midline shift, or acute infarct. The paranasal sinuses are adrian r. The mastoid air cells are clear. The ventricles and sulci demonstrate moderate age-related involut ional changes. Scattered foci of T2 hyperintensity seen within the periventricular and subcortical wh ite matter are nonspecific but suggestive of mild microvascular ischemic changes. The major vascular flow voids at the skull base are well-maintained. IMPRESSION: No acute intracranial abnormality. Scattered foci of T2 hyperintensity seen within the periventricula r and subcortical white matter are nonspecific but favor moderate microvascular ischemic change. ACT 112: Negative or not required by law. Electronically signed by: Phil Velasco M.D. 12/27/2021 7:24 AM
[2021-12-27 08:29] LABS: Estimated Average Glucose 148 mg/dl; Hemoglobin A1C 6.8 % (4.5-5.6)
[2021-12-27] MEDS ORDERED: ENALAPRIL MALEATE 10 MG TAB PO SCH (09:00)
--- NOTE | 2021-12-27 09:36 | Magnetic Resonance Report ---
MR cervical spine wo con HISTORY: 71 years-old Male LUE radiculopathy symptoms acute neck pain with left upper extremity numb ness. COMPARISON: CTA neck 12/27/2021 TECHNIQUE: Multiplanar multisequence MRI of the cervical spine was obtained without the use of IV con trast. FINDINGS: The coffee shop attendant localizer images demonstrate no gross extraspinal abnormality. The study is motion degraded . The imaged posterior fossa structures appear unremarkable. There is normal signal within the visual ized cervical and imaged thoracic spinal cord. No acute fracture, subluxation, endplate erosion or ma rrow replacing process. C2-C3: Mild intervertebral disc space narrowing with uncovertebral hypertrophy and moderate facet art hrosis. The central canal and neural foramina appear patent. C3-C4: Mild to moderate intervertebral disc space narrowing with uncovertebral hypertrophy and business account executive ior disc osteophyte complex with moderate facet arthrosis. There is flattening of the ventral thecal sac without significant central canal stenosis. Moderate left with moderate to severe right neural fo raminal narrowing. C4-C5: Mild to moderate intervertebral disc space narrowing with uncovertebral hypertrophy and small posterior disc osteophyte complex with moderate to severe facet arthrosis and trace facet effusions. Mild central canal stenosis, AP dimension of the thecal sac measuring 8 mm. Moderate right with mild- to-moderate left neural foraminal narrowing. C5-C6: Moderate intervertebral disc space narrowing with uncovertebral hypertrophy and small posterio r disc osteophyte complex with moderate facet arthrosis. Mild central canal stenosis, AP dimension of the thecal sac measuring 8 mm. Severe bilateral foraminal stenosis. C6-C7: Mild to moderate intervertebral disc space narrowing with circumferential annular disc bulge, spondylitic spurring and uncovertebral hypertrophy with moderate facet arthrosis. Flattening of the v entral thecal sac without significant central canal stenosis. Mild right with moderate to severe left neural foraminal narrowing. C7-T1: Mild intervertebral disc space narrowing with moderate facet arthrosis. No central canal or ne ural foraminal narrowing. IMPRESSION: 1. Motion degraded exam. 2. No acute fracture or bone marrow edema. 3. Normal signal of the cervical spinal cord. 4. Discogenic degeneration with facet arthrosis as above resulting in multilevel neural foraminal gui rowing with mild central canal stenosis of the mid cervical spine. ACT 112: Negative or not required by law. The above report was generated using voice recognition software. It may contain grammatical, syntax o r spelling errors. Dictated: 12/27/2021 9:06 AM Transcribed: 12/27/2021 9:28 AM [place] [id number] [email or web address] Electronically signed by: Neno Santoyo M.D. 12/27/2021 9:34 AM
[2021-12-27] MEDS: INSULIN ASPART PER UNIT SC SCH ×4 (09:56→20:56)
[2021-12-27] MEDS: amLODIPine BESYLATE 5 MG TAB PO SCH (09:57)
[2021-12-27] MEDS: PANTOprazole 40 MG TAB PO SCH ×2 (09:57→20:55)
[2021-12-27] MEDS: CHOLECALCIFEROL 5,000 UNITS 125 MCG TAB PO SCH (09:57)
[2021-12-27] MEDS: CYANOCOBALAMIN (B-12) 500 MCG TABLET PO SCH (09:57)
--- NOTE | 2021-12-27 11:05 | Neurology Consultation ---
Date of Consultation December 27, 2021 Assessment & Plan (1) Left hemiparesis: (2) Left sided numbness: (3) Cervical spinal stenosis: (4) Cerebral amyloid angiopathy: Plan patient has a acute onset of left arm greater than leg numbness and tingling and left arm greater than leg clumsiness and weakness diffusely starting the evening of December 26. Although this is very consistent with a small stroke, there is no evidence of acute stroke on MRI. However, there is evidence of old small vessel ischemic disease of a moderate nature. He has risk factors for stroke including former cigarette smoker (quit in 1983), hypertension, diabetes, and dyslipidemia. The patient has mild spinal stenosis at multiple levels from disc in bone as noted on MRI of the cervical spine. Unless the cord is grossly impinged this could not affect the leg. Nevertheless, a spinal cord origin to his symptoms is possible. Finally, the patient has a diagnosis of cerebral amyloid angiopathy made 8 years ago by other clinicians. He has been warned not to be on anticoagulation. Recommendations: 1. Physical, occupational therapy. Increase activity as able. 2. 81 mg aspirin tablet daily. 3. Repeat MRI of the brain with attention to the brainstem, tomorrow, to see if there is something that shows up that was not present on this 1. 4. control blood pressure as you are doing keeping mean arterial pressure of approximately 95-100. 5.Patient would be a statin candidate because of his cerebral amyloid angiopathy, he would not be high dose statin candidate. I will make additional recommendations after the repeat MRI depending on his clinical course. Overall, I spent a total of 90 minutes with this case including review of records, review of MRI films, direct evaluation the patient bedside, and discussing the case with the patient and RN at bedside, and Dr. Villegas including differential diagnosis and treatment options. History of Present Illness Reason for Consultation: Patient is a 71-year-old, who I was asked to see at the request of Dr. Rocha, for neurologic consultation regarding left-sided weakness and numbness. Requesting Physician: Dr. Rocha Attending Physician: Rosy Chun, DO History of Present Illness this patient does have a history of type 2 diabetes, hypertension, and dyslipidemia. He has no history of heart disease or previous stroke. However, 8 years ago when in [place], [place], he had significant headaches of an unusual nature, and was evaluated by a neurologist (who consulted with Dr. Horne from [place]) and a final diagnosis of amyloid angiopathy. He carries this as a medical alert around his neck and has been told not to be on any anticoagulants because he could bleed easily. Apparently, at that time, his MRI showed hemorrhage of varying degrees. he was treated with 1 year of high dose steroids which helped his headaches and then they were tapered off. He has not had any other episodes or significant headaches since . The patient was watching football on TV the evening of December 26. Around 2029, he noted the onset of tingling in his left hand. This tingling over the course of a half an hour went all the way up to his neck on the left side. He did not have neck pain. There was a little bit of weakness in that right arm. By 2229, he noted more weakness in the left upper extremity and left lower extremity was weak and somewhat tingly. He arrived to the emergency room at 3, with a temperature 37.0, pulse 73, respiratory rate 18, blood pressure 135/84, and O2 saturation 98%. NIH stroke scale was 2 for limb weakness and ataxia. CT scan of the head was unremarkable. CT angiography of the head and neck showed no significant vessel stenoses or anomalies but there was a 6 mm stable nodule in the left upper lobe as seen June 2020. MRI of the brain showed no stroke but there was moderate old small vessel ischemic disease. I reviewed these films. MRI of the cervical spine showed degenerative changes with some mild diffuse spinal stenosis from disc and bone at multiple levels but the cord did not seem to be impinged. I reviewed these films. CBC was unremarkable. Chem profile was unremarkable as well. Hemoglobin A1c was 6.8 and triglycerides were 208. Total cholesterol was 131. he has been in normal sinus rhythm in the 70s and 80s. He feels slightly improved in his left lower extremity, but has left upper extremity still has weakness and tingling. Allergies Allergy/AdvReac Type Severity Reaction Status Date / Time aspirin AdvReac Severe contraindic Verified 12/13/21 13:13 ated Home Medications Medication Instructions Recorded Confirmed Type magnesium oxide 500 mg capsule 500 mg PO DAILYBB 03/18/20 12/27/21 History multivitamin 1 tab PO QPM 03/18/20 12/27/21 History zinc 50 mg tablet 50 mg PO QPM 03/18/20 12/27/21 History riboflavin (vitamin B2) 400 mg 400 mg PO QDL 08/19/20 12/27/21 History tablet atorvastatin 40 mg tablet (Lipitor) 40 mg PO QPM #90 tabs 05/10/21 12/27/21 Rx gabapentin 100 mg capsule 100 mg PO DAILY PRN headaches #30 05/10/21 12/27/21 Rx caps levothyroxine 150 mcg tablet 150 mcg PO QAM #90 tabs 05/10/21 12/27/21 Rx liothyronine 5 mcg tablet (Cytomel) 5 mcg PO DAILYBB #90 tabs 05/10/21 12/27/21 Rx metformin 500 mg tablet,extended 1,000 mg PO BID #180 tabs 05/10/21 12/27/21 Rx release 24 hr pantoprazole 40 mg tablet,delayed 40 mg PO BID #180 tabs 07/15/21 12/27/21 Rx release cholecalciferol (vitamin D3) 125 125 mcg PO DAILY 07/21/21 12/27/21 History mcg (5,000 unit) tablet (Vitamin D3) cyanocobalamin (vitamin B-12) 1,000 mcg PO DAILY 07/21/21 12/27/21 History 1,000 mcg tablet naproxen sodium 220 mg capsule 220 mg PO BID PRN Pain 07/21/21 12/27/21 History (Aleve) lancets 30 gauge (BD Ultra-Fine II #100 ea 08/18/21 12/27/21 Rx Lancets) amlodipine 10 mg-benazepril 20 mg 1 cap PO QAM #90 caps 08/29/21 12/27/21 Rx capsule (Lotrel) semaglutide 0.25 mg or 0.5 mg (2 0.5 mg (0.4 mL) subcut WK #1.5 mL 09/13/21 12/27/21 Rx mg/1.5 mL) subcutaneous pen injector (Ozempic) tamsulosin 0.4 mg capsule (Flomax) 0.8 mg PO QPM 12/27/21 12/27/21 History Patient History Medical History Amyloid disease followed with [facility] in past/has not been in contact for a while. BPH (benign prostatic hyperplasia) Diabetes mellitus, type 2 Elevated PSA Fatty liver Hearing deficit History of COVID-19 loss of taste/smell--no issues now 02/2020 HTN (hypertension) Hyperlipidemia Hypothyroidism (acquired) Insect bite (nonvenomous), right ankle, initial encounter Loose bowel movements due to metformin IR Lumbar facet joint syndrome Lumbar spondylosis Mild acid reflux Obesity Osteoarthritis Sleep apnea CPAP Surgical History History of cardiac cath 2001 in [place]--no stents History of colonoscopy History of esophagogastroduodenoscopy (EGD) History of tooth extraction S/P appendectomy S/P cholecystectomy Family History Father Esophageal cancer Colorectal cancer Other No family history of adverse response to anesthesia Denies family history of Ovarian cancer Prostate cancer Myocardial infarction Breast cancer Social History Smoking Status: Never smoker Second Hand Exposure: Yes ( A CHILD); Hx Alcohol Use: Yes Alcohol type: beer Hx Substance Use: No Preferred Language: French Communication Ability: Effective Visual Impairment: No Limitations Hearing Ability: Normal Health Care Administrator Required: No Beliefs That Will Affect Care: None marital status: Current Living Situation: Spouse current occupational status: retired Other Information That Helps Us Care for You: No Feels Safe at Home: Yes Safety Concerns: Feels Safe At This Time Dental Care, Regularly: Yes Physical Activity Frequency: 1-2 Times per Week Seatbelt Use: always Assistive Devices: CPAP, Glasses and Hearing Aid - Bilateral Review of Systems Constitutional: no fever, no fatigue and no weakness Eyes: no diplopia, no eye pain and no worsening vision Ear, Nose, Mouth, Throat: no ear pain, no tinnitus, no hearing loss, no dizziness, no snoring, no hoarseness and no dysphagia Respiratory: no cough and no dyspnea Cardiovascular: no chest pain, no palpitations and no lightheadedness Gastrointestinal: no abdominal pain, no nausea and no vomiting Musculoskeletal: no back pain, no neck pain, no radicular pain, no joint pain and no myalgia Integumentary: no rash and no lesions Neurologic: + gait abnormality, + localized weakness, + tingling and + numbness; no generalized weakness, no tremor(s), no abnormal movements, no headache(s), no abnormal speech, no confusion and no memory loss Psychiatric: no depression, no irritability, no anxiety, no difficulty concentrating, no confusion and no hallucinations Endocrine: no fatigue and no flushing Hematologic / Lymphatic: no easy bleeding and no easy bruising Allergy / Immunological: no urticaria and no problem reported Exam (Neuro) Physical Exam: The patient is Ambidextrous. The patient is awake, alert, and attentive. Speech is normal without any aphasia or dysarthria. The patient can name objects, repeat phrases, and has normal spontaneous speech. Mentation and thought processes are intact, with orientation to person, place and time, and normal fund of knowledge. Attention and concentration are normal. Mood and affect are normal and appropriate. General appearance and grooming are normal. Short and long-term memory are intact. Pupils are 4 mm bilaterally and reactive to light. Extraocular eye muscles are intact without nystagmus. Visual acuity and visual byrne seem normal grossly to confrontation. There are no deficits to sensation in the face in all 3 distributions of the fifth cranial nerve bilaterally. Corneal reflexes are positive bilaterally. Facial strength and symmetry was normal bilaterally. Hearing seems normal bilaterally. Palate moves well without asymmetry. There is normal sternocleidomastoid and trapezius (shoulder shrug) strength bilaterally. Tongue is midline with good strength bilaterally. Neck has a full range of motion without discomfort. There are no cervical bruits bilaterally. There are no cranial or ocular bruits. Heart is without murmur. There is a regular rhythm and rate. Cervical, thoracic, and lumbar spine are nontender to palpation. Gait is narrow based, with good arm swing, turns, and stance. Balance is normal eyes open or closed. I did not notice any gait disturbance although he was a little cautious. With outstretched arms there is Very slight drift on the left but not the right. There are no resting, postural, or action tremors. There is NO ataxia wi th finger to nose testing. There is Decreased facility and rapid alternating movements to mild degree in the left hand but not the right which is normal. Motor strength is 5/5 diffusely in the Right upper extremity including deltoids, biceps, triceps, brachioradialis, wrist flexors and extensors, television analyzer, and intrinsic hand muscles. Motor strength in the left upper extremity is 4 +/ 5 diffusely. Motor strength is 5/5 diffusely in the Right lower extremity including hip flexors, quadriceps, hamstrings, gastrocnemius, tibialis anterior, tibialis posterior, and Peroneii muscles. Motor strength in the left lower extremity is 4+/ 5 diffusely. The limbs have good tone without rigidity or spasticity. There is no atrophy noted in the muscles. Muscle bulk is normal, there is no tenderness to pa lpation, no myotonia to percussion, and no fasciculations seen. Sensory examination Reveals some decreased sensation to pin to a mild degree in the left hand compared to the right. the feet were normal bilaterally. Reflexes are 2/4 in the biceps, triceps, brachioradialis, quadriceps, and Achilles tendons bilaterally. There is no clonus bilaterally. Toes are downgoing with plantar stimulation bilaterally. Peripheral pulses are present and of normal quality distally in all 4 limbs. There is no peripheral edema noted in the limbs. Results & Data ([facility]) Vital Signs (Past 12 Hours) Vital Signs Temp Pulse Pulse Resp BP BP Pulse Ox 12/27/21 07:22 36.6 C 66 17 118/71 94 12/27/21 05:00 12/27/21 04:31 12/27/21 04:31 36.4 C L 65 16 132/82 98 12/27/21 04:40 36.4 C L 65 16 132/82 98 12/27/21 03:11 68 18 148/84 H 94 12/27/21 02:14 67 16 123/75 97 12/27/21 00:52 73 18 157/85 H 98 12/26/21 23:33 37.0 C 73 18 135/84 98 Pulse Ox O2 Del Method O2 Del Method 12/27/21 07:22 Room Air 12/27/21 05:00 Room Air 12/27/21 04:31 98 Room Air 12/27/21 04:31 Room Air 12/27/21 04:40 Room Air 12/27/21 03:11 Room Air 12/27/21 02:14 Room Air 12/27/21 00:52 Room Air 12/26/21 23:33 Room Air PG Care Time/CCT Total # of Minutes Spent Total Time Spent with Patient: Total time spent is greater than 50% in coordination of care (as documented) at patient's floor/unit and/or counseling patient: Coding Level of Care Code 86298 Initial Inpt Care Lvl 3 Diagnoses Left hemiparesis G81.94 Left sided numbness R20.0 Cervical spinal stenosis M48.02 Cerebral amyloid angiopathy E85.4; I68.0 Time Spent (min) 90
--- NOTE | 2021-12-27 11:29 | Progress Note ---
Date of Service December 27, 2021 Assessment & Plan (1) Stroke-like symptom: Plan: - Presented with left arm/leg weakness and paresthesias in patient with history of cerebral amyloid angiopathy. - Stroke alert on ER arrival, seen by [facility] [place] Telestroke. - CT Head, CTA Head/Neck without evidence of stroke. - Symptoms do suggest small CVA vs. TIA, however MRI Brain performed this morning does not show evidence of acute stroke. It does show moderate old small vessel ischemic disease. - Risk factors for stroke include former smoker, HTN, DM2, HLD. - MRI Neck did show mild spinal stenosis at multiple levels, however no gross impingement of the spinal cord that would explain his lower extremity symptoms. - Neurology consulted and appreciate recommendations: - Patient is appropriate candidate for aspirin given his atherosclerotic disease. Aspirin should be avoided in amyloid angiopathy except in patients who have clear indications for antiplatelet therapy, which this patient does. - Repeat MRI Brain in AM with special care to brainstem to see if area of small CVA results. - PT and OT evaluations while inpatient. (2) Left sided numbness: Plan: - Moderately improved this AM compared to admission, however not returned to baseline. - See above. (3) Amyloid disease: Plan: - Follows with study group at [place]. - Has been told he has amyloid angiopathy. - No evidence of hemorrhagic CVA. (4) Diabetes mellitus: Plan: - Continue to hold metformin and semaglutide in favor of mealtime insulins. - BSGs well controlled at this time. (5) Reflux esophagitis: Plan: - Continue pantoprazole 40 mg twice daily. (6) Hypothyroidism (acquired): Plan: - Continue levothyroxine 150 mcg daily and liothyronine 5 mcg daily. (7) Hyperlipidemia: Plan: - Fasting lipid panel today with TChol 131, LDL 48, HDL 41, TG 208. - Continue atorvastatin 40 mg every evening. (8) HTN (hypertension): Plan: - Well controlled. - Permissive HTN okay in setting of possible stroke. (9) BPH (benign prostatic hyperplasia): Plan: - Continue tamsulosin 0.8 mg daily in the evening. (10) Sleep apnea: Plan: - CPAP at bedtime, 9cmH20. Plan Code Status: FULL CODE DVT ppx: ambulate on demand Diet: Heart Healthy, DM2 Dispo: Transfer to Med/Surg Admission and Anticipated Discharge Date Admission Date: December 27, 2021 Subjective Patient without acute events overnight. He reports that he thinks his sensation and weakness in the left leg is improved from admission, however is not back to his baseline. He still endorses subjective tingling/numbness in his 3rd-5th fingers on his left hand. He does note that the tingling/numbness was all the way up to his shoulder yesterday. Review of Systems Constitutional: no fever, no chills and no malaise Eyes: no blind spots and no diplopia Respiratory: no cough and no dyspnea Cardiovascular: no chest pain, no palpitations and no edema Gastrointestinal: no abdominal pain, no constipation and no diarrhea/loose stools Neurologic: improving sensation and strength in left arm/leg Physical Exam Constitutional: well developed and well nourished; no acute distress Eyes: PERRL, conjunctivae normal, anicteric sclerae ENMT: external ear and nose normal, oropharynx normal Respiratory: normal respiratory effort, lungs clear to auscultation Cardiovascular: RRR, no murmur, no edema Gastrointestinal (Abdomen): normal bowel sounds, soft, nontender, no hepatosplenomegaly Musculoskeletal: Head/Neck/Chest: full ROM of neck negative Spurling's maneuver left and right sides normal muscle tone upper and lower extremities Skin: no rashes, warm and dry Neurologic: Normal speech. PERRLA, EOMI, no nystagmus. Normal visual acuity bilaterally. Bilateral face without sensory or motor deficits. CN II-XII intact bilaterally. Strength 5/5 in right arm and right leg. Strenght 4+/5 in left arm and leg. Sensation subjectively decreased in left 3rd-5th fingers. Slight left pronator drift. No tremor. Psychiatric: A+Ox3, euthymic affect Results & Data ([facility]) Vital Signs (Past 12 Hours) Vital Signs Temp Pulse Pulse Resp BP BP Pulse Ox 12/27/21 07:22 36.6 C 66 17 118/71 94 12/27/21 05:00 12/27/21 04:31 12/27/21 04:31 36.4 C L 65 16 132/82 98 12/27/21 04:40 36.4 C L 65 16 132/82 98 12/27/21 03:11 68 18 148/84 H 94 12/27/21 02:14 67 16 123/75 97 12/27/21 00:52 73 18 157/85 H 98 12/26/21 23:33 37.0 C 73 18 135/84 98 Pulse Ox O2 Del Method O2 Del Method 12/27/21 07:22 Room Air 12/27/21 05:00 Room Air 12/27/21 04:31 98 Room Air 12/27/21 04:31 Room Air 12/27/21 04:40 Room Air 12/27/21 03:11 Room Air 12/27/21 02:14 Room Air 12/27/21 00:52 Room Air 12/26/21 23:33 Room Air Coding Level of Care Code 93076 Subseq Obs Care Lvl 3 Diagnoses Stroke-like symptom R29.90 Left sided numbness R20.0 Amyloid disease E85.9 Diabetes mellitus E11.9 Reflux esophagitis K21.00 Hypothyroidism (acquired) E03.9 Hyperlipidemia E78.5 HTN (hypertension) I10 BPH (benign prostatic hyperplasia) N40.0 Sleep apnea G47.30
[2021-12-27] MEDS ORDERED: NON-FORMULARY MEDICATION (Riboflavin (Vitamin B2) 400 mg tablet) PO SCH (11:30)
--- NOTE | 2021-12-27 12:18 | XCELERA ---
[id number]
--- NOTE | 2021-12-27 13:59 | Electrocardiogram Report ---
Test Reason : Blood Pressure : / mmHG Vent. Rate : 067 BPM Atrial Rate : 067 BPM P-R Int : 176 ms QRS Dur : 102 ms QT Int : 420 ms P-R-T Axes : -08 -29 004 degrees QTc Int : 443 ms Normal sinus rhythm Leftward axis Moderate voltage criteria for LVH, may be normal variant Nonspecific T wave abnormality Abnormal ECG When compared with ECG of 18-APR-2020 11:01, Nonspecific T wave abnormality, worse in Inferior leads Confirmed by Bakari Parsons ([id number]) on 12/27/2021 1:59:08 PM Referred By: REFERRED SELF Confirmed By:Bakari Parsons
[2021-12-27] MEDS ORDERED: ZINC SULFATE 220 MG CAPSULE PO SCH (21:00)
[2021-12-27] MEDS ORDERED: ATORVASTATIN 40 MG TAB PO SCH (21:00)
[2021-12-27] MEDS ORDERED: MULTIVITAMIN TAB PO SCH (21:00)
[2021-12-28] MEDS: LEVOTHYROXINE SODIUM 150 MCG TABLET PO SCH (05:41)
[2021-12-28] MEDS: LIOTHYRONINE SODIUM 5 MCG TAB PO SCH (05:41)
--- NOTE | 2021-12-28 06:48 | Discharge Summary ---
Discharge Summary Date of Service December 28, 2021 Admission HPI Per Admitting Provider The patient is a 71-year-old male with a past medical history including thoracic vertebral compression fractures, diabetes mellitus, right parotid gland mass, cerebral micro vasculopathy, lumbar degenerative disc disease, reflux esophagitis, fatty liver, sleep apnea with CPAP 9 cm setting, lumbar facet joint syndrome, amyloid disease causing hemorrhagic CVA, hypertension, hyperlipidemia and hypothyroidism. The patient was initially assessed by the ED as a stroke alert, with supervision by [facility] telestroke neurology, who determined that the patient likely had a stroke, but was not a candidate for intervention due to previous history of hemorrhagic CVA. Admission Exam Per Admitting Provider The patient is awake, alert and oriented 3, well developed and well nourished, normocephalic and atraumatic, lying in bed and in no acute distress. HEENT--PERRL, EOMI, mucous membranes and oropharynx normal. Neck--supple. No JVD. No bruits. Thyroid normal, trachea midline, no adenopathy. Heart--normal S1 and S2. No murmurs, rubs or gallops. Lungs--clear bilaterally, no respiratory distress, no accessory muscle use. Abdomen--normal bowel sounds and soft. Nontender. Nondistended, no hernias or masses, no organomegaly. Obese Extremities--no cyanosis or clubbing. No edema. Dermatologic--normal skin turgor, normal color, no abnormal lymph nodes, no rash. Neurologic--cranial nerves II through XII grossly intact. Rheumatologic--normal range of motion. Psychiatric--normal affect. Principal Dx & Hospital Course #1 = Principal Diagnosis (1) Stroke-like symptom: - Presented with left arm/leg weakness and paresthesias in patient with history of cerebral amyloid angiopathy. - Stroke alert on ER arrival, seen by [facility] Telestroke. - CT Head, CTA Head/Neck without evidence of stroke. - Symptoms do suggest small CVA vs. TIA, however MRI Brain performed x2 does not show evidence of acute stroke. It does show moderate old small vessel ischemic disease. - Risk factors for stroke include former smoker, HTN, DM2, HLD. - MRI Neck did show mild spinal stenosis at multiple levels, however no gross impingement of the spinal cord that would explain his lower extremity symptoms. - Neurology consulted and appreciate recommendations: - Patient is appropriate candidate for aspirin given his atherosclerotic disease. Aspirin should be avoided in amyloid angiopathy except in patients who have clear indications for antiplatelet therapy, which this patient does. - TIA likely as opposed to CVA this admission. - PT and OT evaluations completed; safe for home discharge. Patient's strength back to baseline on left side, with minimal tingling in left 3rd-5th fingers. - Follow up with Neurology in 2-3 weeks. (2) Left sided numbness: - Resolved. - See above. (3) Amyloid disease: - Follows with study group at [place]. - Has been told he has amyloid angiopathy. - No evidence of hemorrhagic CVA. (4) Diabetes mellitus: - BSGs well controlled during admission. - A1c 6.8%. - Return to home medications on discharge. (5) Reflux esophagitis: - Continue pantoprazole 40 mg twice daily. (6) Hypothyroidism (acquired): - Continue levothyroxine 150 mcg daily and liothyronine 5 mcg daily. (7) Hyperlipidemia: - Fasting lipid panel today with TChol 131, LDL 48, HDL 41, TG 208. - Continue atorvastatin 40 mg every evening. (8) HTN (hypertension): - Well controlled. - Continue home medications. (9) BPH (benign prostatic hyperplasia): - Continue tamsulosin 0.8 mg daily in the evening. (10) Sleep apnea: - CPAP at bedtime, 9cmH20. Plan Dispo: Home Discharge Exam Constitutional well developed and well nourished; no acute distress Respiratory normal respiratory effort, lungs clear to auscultation Cardiovascular RRR, no murmur, no edema Musculoskeletal no cyanosis or clubbing, extremities motor strength 5/5 Neurologic patellar DTR's 2+ bilat, sensation intact and PERRL, EOMI, accommodation nl, no face palsy, no dysarthria Updated Medication List Medication Instructions Recorded Confirmed Type magnesium oxide 500 mg capsule 500 mg PO DAILYBB 03/18/20 12/27/21 History multivitamin 1 tab PO QPM 03/18/20 12/27/21 History zinc 50 mg tablet 50 mg PO QPM 03/18/20 12/27/21 History riboflavin (vitamin B2) 400 mg 400 mg PO QDL 08/19/20 12/27/21 History tablet atorvastatin 40 mg tablet (Lipitor) 40 mg PO QPM #90 tabs 05/10/21 12/27/21 Rx gabapentin 100 mg capsule 100 mg PO DAILY PRN headaches #30 05/10/21 12/27/21 Rx caps levothyroxine 150 mcg tablet 150 mcg PO QAM #90 tabs 05/10/21 12/27/21 Rx liothyronine 5 mcg tablet (Cytomel) 5 mcg PO DAILYBB #90 tabs 05/10/21 12/27/21 Rx metformin 500 mg tablet,extended 1,000 mg PO BID #180 tabs 05/10/21 12/27/21 Rx release 24 hr pantoprazole 40 mg tablet,delayed 40 mg PO BID #180 tabs 07/15/21 12/27/21 Rx release cholecalciferol (vitamin D3) 125 125 mcg PO DAILY 07/21/21 12/27/21 History mcg (5,000 unit) tablet (Vitamin D3) cyanocobalamin (vitamin B-12) 1,000 mcg PO DAILY 07/21/21 12/27/21 History 1,000 mcg tablet naproxen sodium 220 mg capsule 220 mg PO BID PRN Pain 07/21/21 12/27/21 History (Aleve) lancets 30 gauge (BD Ultra-Fine II #100 ea 08/18/21 12/27/21 Rx Lancets) amlodipine 10 mg-benazepril 20 mg 1 cap PO QAM #90 caps 08/29/21 12/27/21 Rx capsule (Lotrel) semaglutide 0.25 mg or 0.5 mg (2 0.5 mg (0.4 mL) subcut WK #1.5 mL 09/13/21 12/27/21 Rx mg/1.5 mL) subcutaneous pen injector (Ozempic) tamsulosin 0.4 mg capsule (Flomax) 0.8 mg PO QPM 12/27/21 12/27/21 History aspirin 81 mg tablet,delayed 81 mg PO QAM #30 tabs 12/28/21 Rx release Hospital Stay Data Consultations 12/27/21 01:27 ED Decision to Admit Stat 12/27/21 04:31 Consult Neurology Routine Diagnostic Imagining Performed 12/26/21 23:51 CT angio head w con Stat CT angio neck with con Stat CT head/brain wo con Stat 12/27/21 02:13 MRI Brain [MR brain wo con] Stat MRI Cervical [MR cervical spine wo con] Stat 12/28/21 00:00 MR brain wo con Routine Discharge Instructions Given to Patient (Per Discharging Provider) You were admitted to the hospital for evaluation of stroke-like symptoms. You had imaging of your brain which fortunately did not visualize a stroke. Because of this, we believe that what you had is called a Transient Ischemic Attack. The symptoms of these are the same as a stroke, without the permanent damage to your brain. The risk factors for TIA and stroke are the same. Given your history of risk factors for stroke, we as a team with Neurology discussed risks and benefits of aspirin therapy moving forward to prevent ischemic strokes. It is important to note that aspirin does somewhat increase your bleeding risk, and in patients with cerebral amyloid angiopathy, this medication should only be used if the benefit of aspirin outweighs the risk, which we believe it does. Aspirin 81 milligrams can be bought over the counter at your local pharmacy. Please take one tablet daily at around the same time each day. It is important that you follow up with Dr. Wright your family doctor re garding your admission to the hospital. You can talk with her about doing physical therapy if you feel that your strength is not continuing to improve. You will also have follow up in a few weeks with one of the providers in the Neurology office. The office number is [phone] if you do not hear from their office for scheduling by Sunday. Please return to the ER if you have any return or worsening of weakness, facial droop, chest pain, or trouble breathing for urgent evaluation. Risk Factors for Stroke: You can reduce your chances of stroke by working with your medical provider to adopt a healthy lifestyle. Some specific ways to lower your chance of stroke are: * If you are a smoker, now is the time to stop smoking cigarettes * If you are diabetic, improve the control of your blood sugars * Avoid excessive amounts of alcohol * Control high blood pressure * Lose weight if you are overweight * Be sure to lead an active lifestyle * Eat a healthy diet low in salt, cholesterol and fat You should know about other risk factors for stroke that you are unable to control. These include: * Age 55 years or older * Male gender * Certain racial groups: , or / * Family History of Stroke, Mini stroke or Heart Attack * Sickle Cell Disease Follow Up: It is important for you to keep your follow up appointments with your medical provider. Who to Call and When: Medical Emergencies: Call 911 immediately if you experience any of the following warning signs and symptoms of Stroke: * Sudden numbness or weakness of the face, arm or leg, especially on one side of the body * Sudden confusion, trouble speaking or understanding * Sudden trouble seeing in one or both eyes * Sudden trouble walking, dizziness, loss of balance or coordination * Sudden severe headache with no cause Do not delay calling 911 if you experience any warning signs or symptoms of a stroke. Delay in seeking medical attention may affect what treatments can be given to you. . Total Time Total Time Spent Total Time Spent (In Minutes): 40 min Coding Level of Care Code D/C DAY MANAGEMENT >30 MINS Diagnoses Stroke-like symptom R29.90 Left sided numbness R20.0 Amyloid disease E85.9 Diabetes mellitus E11.9 Reflux esophagitis K21.00 Hypothyroidism (acquired) E03.9 Hyperlipidemia E78.5 HTN (hypertension) I10 BPH (benign prostatic hyperplasia) N40.0 Sleep apnea G47.30
--- NOTE | 2021-12-28 08:17 | Magnetic Resonance Report ---
MR brain wo con HISTORY: 71 years-old Male care to brainstem eval for small CVA per Neuro acute strokelike symptoms COMPARISON: Brain MRI 12/27/2021, head CT 12/27/2021 TECHNIQUE: Multiplanar multisequence MRI of the brain was obtained without the use of IV contrast. FINDINGS: No restricted diffusion to suggest acute or subacute infarct. Specifically, the brainstem appears unr emarkable. No acute intracranial hemorrhage, midline shift, abnormal extra-axial collection, hydrocep halus or intracranial mass. Moderate to extensive T2/FLAIR hyperintense foci are again noted througho ut the white matter. Midline structures appear unremarkable. Degenerative changes of the cervical spi ne. Cerebral venous sinuses and major arterial flow voids appear patent. The study is mildly motion degra ded. The skull, orbits and soft tissues are unremarkable. Mastoid air cells and paranasal sinuses carmela ear clear. IMPRESSION: 1. No acute intracranial abnormality. Specifically, no acute or subacute infarct identified within th e brainstem. 2. Moderate to extensive T2/FLAIR hyperintense foci throughout the white matter are nonspecific howev er favor chronic microvascular ischemic disease. ACT 112: Negative or not required by law. The above report was generated using voice recognition software. It may contain grammatical, syntax o r spelling errors. Electronically signed by: Neno Santoyo M.D. 12/28/2021 8:15 AM
[2021-12-28] MEDS ORDERED: ASPIRIN 81 MG ECTAB PO SCH (09:00)
[2021-12-28] MEDS: CYANOCOBALAMIN (B-12) 500 MCG TABLET PO SCH (09:14)
[2021-12-28] MEDS: MAGNESIUM OXIDE 400 MG TAB PO SCH (09:14)
[2021-12-28] MEDS: PANTOprazole 40 MG TAB PO SCH (09:14)
[2021-12-28] MEDS: CHOLECALCIFEROL 5,000 UNITS 125 MCG TAB PO SCH (09:15)
[2021-12-28] MEDS: amLODIPine BESYLATE 5 MG TAB PO SCH (09:15)
[2021-12-28] MEDS: INSULIN ASPART PER UNIT SC SCH (09:20)
--- NOTE | 2021-12-28 10:17 | Neurology Progress Note ---
Date of Service December 28, 2021 Assessment & Plan (1) Left hemiparesis: (2) Left sided numbness: (3) Cervical spinal stenosis: (4) Cerebral amyloid angiopathy: Plan Patient had an acute onset of left arm greater than leg numbness and tingling and left arm greater than leg clumsiness and weakness, diffusely starting the evening of December 26. The patient had 2 MRIs and there is no evidence of acute stroke. I would classify this as a reversible ischemic neurologic deficit ( essentially a prolonged TIA). There is evidence , however, of old small vessel ischemic disease of a moderate nature. He has risk factors for stroke including former cigarette smoker (quit in 1983), hypertension, diabetes, and dyslipidemia. The patient has mild spinal stenosis at multiple levels from disc in bone as noted on MRI of the cervical spine. Unless the cord is grossly impinged this could not affect the leg. Nevertheless, a spinal cord origin to his symptoms is possible. Finally, the patient has a diagnosis of cerebral amyloid angiopathy made 8 years ago by other clinicians. He has been warned not to be on anticoagulation. we had a long discussion regarding the benefits and risks of not giving him an anti-platelet medication given his recent prolonged TIA and old small vessel ischemic disease versus bleeding potential with 81 mg aspirin ( especially with a diagnosis of amyloid angiopathy ). I believe that the benefits of 81 mg aspirin for this patient in preventing stroke and TIA far outweighs the risk of bleeding, even with his remote diagnosis of amyloid angiopathy. MRIs do not show any evidence of current or former bleeding. Recommendations: 1. Physical, occupational therapy. Increase activity as able. 2. continue 81 mg aspirin tablet daily. 3. I have asked the patient to obtain the previous MRI films as well as records regarding his diagnosis and treatment of amyloid angiopathy 8 years ago [facility]. He will try to obtain those records for me. 4. Otherwise, I will see him for follow-up as an outpatient ( 3 weeks or so with a PA in our office) 5. control blood pressure as you are doing keeping mean arterial pressure of approximately 95-100. 6. continue atorvastatin 40 mg daily. Because of his cerebral amyloid ang iopathy, he would not be high dose statin candidate. Overall, I spent a total of 35 minutes with this case including review of records, review of MRI films, direct evaluation the patient bedside, and discussion of the case with the patient at bedside, and Dr. Villegas, including differential diagnosis and treatment options. Admission and Anticipated Discharge Date Admission Date: December 27, 2021 Subjective patient feels basically back to baseline with his left arm and leg compared to when he came into the hospital. He has no significant weakness but may have some very slight clumsiness leftover. He does not have any numbness or tingling currently. Blood pressure is 122/77. Repeat MRI of the brain showed no acute stroke in the brainstem or anywhere else and showed no evidence of bleeding. he has moderate old small vessel ischemic disease which is stable. The patient has sleep apnea and slept well last night because his brought his CPAP machine home. He took a long walk this morning and said in his bed noting a little bit of clumsiness left over left hand but he feels that is back to baseline now. Results & Data ([facility]) Vital Signs (Past 12 Hours) Vital Signs Temp Pulse Resp BP Pulse Ox O2 Del Method 12/28/21 06:27 36.5 C 65 18 122/77 95 Room Air 12/27/21 22:41 36.7 C 68 18 124/74 95 BiPAP 12/27/21 22:32 Room Air Exam (Neuro) Physical Exam: He is awake and alert. Speech is without aphasia or dysarthria. Mood and affect are normal appropriate. Thought processes are intact with good long and short-term memory. Extraocular muscles are intact without nystagmus. There is no facial droop. Tongue is midline. Coordination is normal in the arms without tremor or ataxia. There is reasonable facility in the left hand although it is slightly off compared to the right which is normal. Strength is essentially 5/5 diffusely in the arms and legs both proximally and distally. The left foot may be slightly decreased in facility compared to the right which is normal. PG Care Time/CCT Total # of Minutes Spent Total Time Spent with Patient: Total time spent is greater than 50% in coordination of care (as documented) at patient's floor/unit and/or counseling patient: Coding Level of Care Code 43771 Subseq Hosp Care Lvl 3 Diagnoses Left hemiparesis G81.94 Left sided numbness R20.0 Cervical spinal stenosis M48.02 Cerebral amyloid angiopathy E85.4; I68.0
[2021-12-28] MEDS ORDERED: STROKE PATIENT DISCHARGE STA (11:04)
--- NOTE | 2021-12-28 12:34 | Electrocardiogram Report ---
Test Reason : Blood Pressure : / mmHG Vent. Rate : 067 BPM Atrial Rate : 067 BPM P-R Int : 170 ms QRS Dur : 106 ms QT Int : 418 ms P-R-T Axes : 005 -31 023 degrees QTc Int : 441 ms Normal sinus rhythm Left axis deviation Abnormal ECG When compared with ECG of 27-DEC-2021 00:16, Nonspecific T wave abnormality, improved in Inferior leads Confirmed by Bakari Parsons ([id number]) on 12/28/2021 12:34:15 PM Referred By: REFERRED SELF Confirmed By:Bakari Parsons
== END 2021-12-28 12:29 | disposition home or self-care (01) ==
LOC: ED 23:30 → 2S 23:30 → SUATTDRO 12-27 02:26 → 2S 12-27 03:41 → 2N 12-27 21:05 → 2W 12-28 10:07
DX: R29.90 Unspecified symptoms and signs involving the nervous system; N40.0 Benign prostatic hyperplasia without lower urinary tract symptoms; G81.90 Hemiplegia, unspecified affecting unspecified side; E03.9 Hypothyroidism, unspecified; E78.5 Hyperlipidemia, unspecified; Z79.82 Long term (current) use of aspirin; R20.0 Anesthesia of skin; Z79.899 Other long term (current) drug therapy; Z88.6 Allergy status to analgesic agent; K21.9 Gastro-esophageal reflux disease without esophagitis; R91.1 Solitary pulmonary nodule; I67.2 Cerebral atherosclerosis; E11.9 Type 2 diabetes mellitus without complications; Z79.84 Long term (current) use of oral hypoglycemic drugs; M48.02 Spinal stenosis, cervical region; I10 Essential (primary) hypertension; E85.9 Amyloidosis, unspecified; G47.30 Sleep apnea, unspecified; Z87.891 Personal history of nicotine dependence

== ENCOUNTER 2022-05-01 02:36 | Observation (INO) ==
[2022-05-01 03:18] LABS: Basophils # (auto) 0.05 K/uL (0-0.2); Basophils % (auto) 0.8 %; Eosinophils % (auto) 1.6 %; Hematocrit (blood only) 44.2 % (40.1-51.0); Hemoglobin 15.3 g/dl (14.0-18.0); Immature Granulocytes # (auto) 0.04 K/uL (0.00-0.02); Immature Granulocytes % (auto) 0.6 %; Lymphocytes # (auto) 1.74 K/uL (1.2-3.4); Mean Corpuscular Hemoglobin 30.6 pg (25.0-34.0); Mean Corpuscular Hgb Conc 34.6 g/dL (32.0-36.0); Mean Corpuscular Volume 88.4 fL (80.0-100.0); Mean Platelet Volume 9.1 fL (9.4-12.4); Monocytes # (auto) 0.46 K/uL (0.24-0.82); Monocytes % (auto) 7.4 %; Neutrophils # (auto) 3.83 K/uL (1.4-6.5); Neutrophils % (auto) 61.6 %; Platelet Count 193 K/uL (130-400); RDW Coefficient of Variation 12.7 % (11.5-14.5); RDW Standard Deviation 40.9 fL (36.4-46.3); White Blood Count 6.22 K/ul (4.8-10.8)
[2022-05-01 03:31] LABS: INR 1.1 (0.9-1.1); Partial Thromboplastin Ratio 1.1; Partial Thromboplastin Time 30.6 Seconds (21.0-31.0); Prothrombin Time 11.7 Seconds (9.0-12.0)
[2022-05-01 03:39] LABS: Albumin Level 4.5 gm/dl (3.4-5.0); BUN Creatinine Ratio 18.7 (10-20); Bilirubin,Total 0.6 mg/dl (0.2-1.0); Calcium 9.5 mg/dl (8.5-10.1); Creatinine Clr Calc Pharmacy 79.1 ml/min; Est GFR (African American) 99.3 ml/min; Est GFR (Non-African American) 85.7 ml/min; Globulin 2.3 gm/dl (2.5-4.0); Potassium 3.9 mmol/L (3.5-5.1); Total Protein 6.8 gm/dl (6.0-8.3)
[2022-05-01] MEDS ORDERED: ACETAMINOPHEN 1,000 MG/100 ML VIAL IV STA (03:41)
--- NOTE | 2022-05-01 03:51 | Emergency Department Note ---
History of Present Illness General Chief complaint: Headache Stated complaint: SEVERE HEADACHE LFT SIDE,PREVIOUS TIA IN DEC Time Seen by Provider: 05/01/22 02:39 History of Present Illness Maximum Pain Intensity: 9 71-year-old male presents emergency department had sudden onset of headache on the left side of his head that started at 1:30 AM this morning. Patient states he went to bed at 10 PM states he was doing fine there is been no recent infection no recent trauma no recent fever. Patient is on Plavix for TIA in December. Patient denies nausea or vomiting. Patient has not taken any medicines prior to arrival. States the pain is moderate located in the left side of the head. There are no other mitigating or alleviating factors. Patient also states that he seeing flashes of lights in both eyes. Patient does not have double vision. Patient does not have slurred speech or weakness in the upper extremities or lower extremities. There are no other complaints at this time Home Medications Medication Instructions Recorded Confirmed Type magnesium oxide 500 mg capsule 500 mg PO DAILYBB 03/18/20 04/28/22 History zinc 50 mg tablet 50 mg PO QPM 03/18/20 04/28/22 History riboflavin (vitamin B2) 400 mg 400 mg PO QDL 08/19/20 04/28/22 History tablet atorvastatin 40 mg tablet (Lipitor) 40 mg PO QPM #90 tabs 05/10/21 04/28/22 Rx levothyroxine 150 mcg tablet 150 mcg PO QAM #90 tabs 05/10/21 04/28/22 Rx liothyronine 5 mcg tablet (Cytomel) 5 mcg PO DAILYBB #90 tabs 05/10/21 04/28/22 Rx metformin 500 mg tablet,extended 1,000 mg PO BID #180 tabs 05/10/21 04/28/22 Rx release 24 hr cholecalciferol (vitamin D3) 125 125 mcg PO DAILY 07/21/21 04/28/22 History mcg (5,000 unit) tablet (Vitamin D3) cyanocobalamin (vitamin B-12) 1,000 mcg PO DAILY 07/21/21 04/28/22 History 1,000 mcg tablet naproxen sodium 220 mg capsule 220 mg PO BID PRN Pain 07/21/21 04/28/22 History (Aleve) lancets 30 gauge (BD Ultra-Fine II #100 ea 08/18/21 04/28/22 Rx Lancets) amlodipine 10 mg-benazepril 20 mg 1 cap PO QAM #90 caps 08/29/21 04/28/22 Rx capsule (Lotrel) tamsulosin 0.4 mg capsule (Flomax) 0.8 mg PO QPM 12/27/21 04/28/22 History pantoprazole 40 mg tablet,delayed 40 mg PO QAM #90 tabs 01/19/22 04/28/22 Rx release semaglutide 1 mg/dose (4 mg/3 mL) 1 mg (0.75 mL) subcut WK #3 mL 01/19/22 04/28/22 Rx subcutaneous pen injector clopidogrel 75 mg tablet (Plavix) 75 mg PO DAILY #90 tabs 03/15/22 04/28/22 Rx Allergies Allergy/AdvReac Type Severity Reaction Status Date / Time aspirin AdvReac Intermediate Headache Verified 04/28/22 09:49 coumadin AdvReac Severe Uncoded 04/28/22 09:49 Past Med/Surg History Medical History Arm paresthesia, left BPH (benign prostatic hyperplasia) Diabetes mellitus, type 2 Elevated PSA Fatty liver Hearing deficit History of COVID-19 loss of taste/smell--no issues now 02/2020 HTN (hypertension) Hyperlipidemia Hypothyroidism (acquired) Insect bite (nonvenomous), right ankle, initial encounter Left sided numbness Left spastic hemiparesis Loose bowel movements due to metformin IR Lumbar facet joint syndrome Lumbar spondylosis Mild acid reflux Myofascial pain Obesity Osteoarthritis Sleep apnea CPAP Stroke-like symptom Surgical History History of cardiac cath 2000 in [place]--no stents History of colonoscopy History of esophagogastroduodenoscopy (EGD) History of tooth extraction S/P appendectomy S/P cholecystectomy Family History Father Esophageal cancer Colorectal cancer Other No family history of adverse response to anesthesia Denies family history of Ovarian cancer Prostate cancer Myocardial infarction Breast cancer Social History Smoking Status: Never smoker Second Hand Exposure: Yes ( A CHILD); Hx Alcohol Use: Yes Alcohol type: beer Hx Substance Use: No Preferred Language: Chinese Communication Ability: Effective Visual Impairment: No Limitations Hearing Ability: Normal Supervisor Drying And Softening Required: No Beliefs That Will Affect Care: None marital status: Current Living Situation: Spouse current occupational status: retired Feels Safe at Home: Yes Dental Care, Regularly: Yes Physical Activity Frequency: 1-2 Times per Week Seatbelt Use: always Assistive Devices: CPAP, Glasses and Hearing Aid - Bilateral Review of Systems A total of 10 systems reviewed and were otherwise negative Constitutional: no fever Eyes: + seeing flashes Neurologic: + headache(s) Physical Exam Vital Signs Vital Signs - 24 hr 05/01/22 02:42 05/01/22 03:39 Temperature 36.8 C Temperature Source Temporal Artery Scan Pulse Rate 78 Pulse Rate [Apical] 68 Respiratory Rate 18 18 Respiratory Effort / Characteristics Non-Labored Respiratory Depth Normal Blood Pressure 129/84 Blood Pressure [Left Arm] 125/76 Blood Pressure Mean 99 Blood Pressure Mean [Left Arm] 92 Pulse Oximetry 97 96 Oxygen Delivery Method Room Air Room Air Sepsis Recent Fever Within 48 Hours No Sepsis New/Unexplained Change in Mental Status No Sepsis Action Taken by Nursing No Action Required GENERAL: Patient is awake alert in no acute distress patient is resting comfortably and showing no signs of anxiety EYES: The conjunctivae are clear. The pupils are round and reactive. EARS, NOSE, MOUTH AND THROAT: The nose is without any evidence of any deformity. Mucous membranes are moist. Tongue is midline. NECK: The neck is nontender and supple. RESPIRATORY: Normal respiratory effort is noted there is no evidence of wheezing rhonchi or rales CARDIOVASCULAR: Regular rate and rhythm noted there no murmurs rubs or gallops normal S1 normal S2. GASTROINTESTINAL: The abdomen is soft. Abdomen is nontender. BACK: No midline tenderness or or step-off noted range of motion in flexion extension as well as rotation no signs of muscle spasm noted MUSCULOSKELETAL/EXTREMITIES: There is no evidence of gross deformity full range of motion is noted in the hips and shoulders. SKIN: There is no obvious evidence of any rash. There are no petechiae, pallor or cyanosis noted. NEUROLOGIC: Patient is awake alert and oriented x3 strength is symmetric; GCS 15; NIH 0 Course Reevaluation(s) Reevaluation #1: Patient was resting in no distress was given IV Tylenol, patient is not hypertensive, patient has no obvious overt intracranial hemorrhage on CT, patient is on Plavix. The case was discussed with the hospitalist for admission Time: 04:00 Consultations Consultation #1: This case was discussed with the [facility] hospitalist Dr. Disla and she agrees for admission for further evaluation of headache with TIA-like symptoms Time: 04:00 Administered Medications Discontinued Medications Acetaminophen (Ofirmev) 1,000 mg in 100 mls @ 400 mls/hr IV NOW STA Stop: 05/01/22 03:55 Last Admin: 05/01/22 03:49 Dose: 400 mls/hr Documented By: RODNEY Medical Decision Making Medical Records Attestation: I reviewed the patient's medical records. Home Medications Current Medication List: was personally reviewed by me Laboratory Data Attestation: I reviewed the patient's lab results. Patient's labs reviewed by me and unremarkable 05/01/22 03:00 05/01/22 03:00 Lab Results 05/01/22 05/01/22 05/01/22 Range/Units 03:00 03:00 03:00 WBC 6.22 (4.8-10.8) K/ul RBC 5.00 (4.63-6.08) M/uL Hgb 15.3 (14.0-18.0) g/dl Hct 44.2 (40.1-51.0) % MCV 88.4 (80.0-100.0) fL MCH 30.6 (25.0-34.0) pg MCHC 34.6 (32.0-36.0) g/dL RDW Std Deviation 40.9 (36.4-46.3) fL RDW Coeff of Nanda 12.7 (11.5-14.5) % Plt Count 193 (130-400) K/uL MPV 9.1 L (9.4-12.4) fL Immature Gran % (Auto) 0.6 % Neut % (Auto) 61.6 % Lymph % (Auto) 28.0 % Maverick % (Auto) 7.4 % Eos % (Auto) 1.6 % Baso % (Auto) 0.8 % Neut # (Auto) 3.83 (1.4-6.5) K/uL Lymph # (Auto) 1.74 (1.2-3.4) K/uL Maverick # (Auto) 0.46 (0.24-0.82) K/uL Eos # (Auto) 0.10 (0-0.50) K/uL Baso # (Auto) 0.05 (0-0.2) K/uL Immature Gran # (Auto) 0.04 H (0.00-0.02) K/uL PT 11.7 (9.0-12.0) Seconds INR 1.1 (0.9-1.1) APTT 30.6 (21.0-31.0) Seconds PTT Ratio 1.1 Sodium 137 (136-145) mmol/L Potassium 3.9 (3.5-5.1) mmol/L Chloride 106 (98-107) mmol/L Carbon Dioxide 27 (21-32) mmol/L Anion Gap 4 (3-11) BUN 17 (6-23) mg/dl Creatinine 0.91 (0.6-1.4) mg/dl Est Cr Clr Drug Dosing 79.1 ml/min Est GFR ( Amer) 99.3 ml/min Est GFR (Non-Af Amer) 85.7 ml/min BUN/Creatinine Ratio 18.7 (10-20) Glucose 155 H (70-99(Fasting)) mg/dl Calcium 9.5 (8.5-10.1) mg/dl Total Bilirubin 0.6 (0.2-1.0) mg/dl AST 10 L (13-39) U/L ALT 17 (7-52) U/L Alkaline Phosphatase 88 (34-104) U/L Total Protein 6.8 (6.0-8.3) gm/dl Albumin 4.5 (3.4-5.0) gm/dl Globulin 2.3 L (2.5-4.0) gm/dl Albumin/Globulin Ratio 2.0 (0.9-2) Imaging Data Attestation: I personally reviewed and interpreted this imaging study as follows: My Impression: Patient's CT of the brain reviewed by me no obvious intracranial hemorrhage ECG Data Attestation: I personally reviewed and interpreted this ECG as follows: Additional Comments: EKG interpreted by me normal sinus rhythm rate of 67 left ventricular hypertroph y nonspecific T wave abnormality left axis deviation no obvious ST segment elevation or depression Blood Pressure Blood Pressure Findings: Normal blood pressure MDM Narrative Medical decision making differential diagnosis includes TIA, CVA, intracranial bleed, hypertension, migraine, dehydration. Plan is to check labs, CT, EKG Nursing notes reviewed and appreciated I have independently reviewed outpatient notes from the patient's visit with a neurologist physician clerical administrative assistant on April 28, 2022 Independent information from the patient's who is at bedside Patient's EKG is nonischemic Patient's lab work is unremarkable Patient has a headache with visual disturbances with no prior history except for being on Plavix and TIA. The concern is for worsening TIA symptoms. The case was discussed with the hospitalist for admission as an inpatient for further evaluation Patient's presentation does not seem to be CVA or intracranial hemorrhage or subarachnoid hemorrhage at this time. Patient is not hypertensive I do not suspect hypertensive emergency. Patient does have sided headache that woke him from sleep. He was doing well yesterday. I do not suspect migraine. With the patient's recent strokelike and TIA symptoms in December I believe it is best to admit the patient for further evaluation Impression & Plan Headache, History of TIA (transient ischemic attack) Discharge Plan Visit Data Chief Complaint: Headache Stated Complaint: SEVERE HEADACHE LFT SIDE,PREVIOUS TIA IN DEC ED Provider: Brannon Baugh Discharge Problem: Headache, History of TIA (transient ischemic attack) Patient Disposition: Admitted As Inpatient Forms Stand Alone Forms: My [facility] Prescriptions Prescriptions: No Action riboflavin (vitamin B2) 400 mg tablet 400 mg PO QDL amlodipine-benazepril [Lotrel] 10-20 mg capsule 1 cap PO QAM Qty: 90 3RF clopidogrel [Plavix] 75 mg tablet 75 mg PO DAILY Qty: 90 1RF (DME) lancets [BD Ultra-Fine II Lancets] 30 gauge misc See Rx Instructions .Route Qty: 100 0RF Rx Instructions: As directed Ozempic 1 mg/dose (4 mg/3 mL) pen injector 1 mg subcut WK Qty: 3 5RF Rx Instructions: q Sunday pantoprazole 40 mg tablet,delayed release (DR/EC) 40 mg PO QAM Qty: 90 1RF levothyroxine 150 mcg tablet 150 mcg PO QAM Qty: 90 1RF atorvastatin [Lipitor] 40 mg tablet 40 mg PO QPM Qty: 90 3RF liothyronine [Cytomel] 5 mcg tablet 5 mcg PO DAILYBB Qty: 90 1RF metformin 500 mg tablet extended release 24 hr 1,000 mg PO BID Qty: 180 3RF zinc 50 mg Tablet 50 mg PO QPM magnesium oxide 500 mg Capsule 500 mg PO DAILYBB cyanocobalamin (vitamin B-12) 1,000 mcg Tablet 1,000 mcg PO DAILY cholecalciferol (vitamin D3) [Vitamin D3] 125 mcg (5,000 unit) Tablet 125 mcg PO DAILY naproxen sodium [Aleve] 220 mg Capsule 220 mg PO BID PRN (Reason: Pain) tamsulosin [Flomax] 0.4 mg capsule 0.8 mg PO QPM Referrals Referrals: Rosy Montoya MD [Primary Care Provider] -
--- NOTE | 2022-05-01 05:01 | History & Physical Report ---
Date of Service May 01, 2022 Assessment & Plan (1) Headache: Plan: 71yo male with history of cerebral amyloid angiopathy, recent TIA several months ago presenting with severe, acute JAMES that woke him from sleep. No seizure, no neck stillness, no neurological deficits. Headache persists despite IV Tylenol. CT of the head with formal read pending. -Admit to medical with telemetry -Await CT of the head -Check CTA of the head and neck -Check MRI brain -Neurology consultation appreciated -Blood pressure control - goal 140-160 -Pain control with Tylenol, Morphine PRN (2) Cerebral amyloid angiopathy: Plan: Chronic -Imaging ordered as above -Neuro checks per protocol -Blood pressure maintenance -Magnesium oxide daily (3) History of TIA (transient ischemic attack): Plan: Patient with TIA several months ago. Reports ongoing fatigue since, occasional left foot drop and speech deficit -Holding Plavix until further imaging -Continue Atorvastatin (4) HTN (hypertension): Plan: Maintain blood pressure 140-160mmhg goal -Amlodipine 10mg po daily -Hold Benazepril -Monitor BP (5) BPH (benign prostatic hyperplasia): Plan: Chronic -Flomax (6) Diabetes mellitus: Plan: Chronic. Overall well controlled. Last [id number] on 01/03/22 -Insulin basal, bolus -Goal blood sugar 110-140 (7) Sleep apnea: Plan: CPAP (8) Hyperlipidemia: Plan: Chronic -Continue Atorvastatin (9) Hypothyroidism (acquired): Plan: Chronic -Continue Synthroid -Continue Liothyronine History of Present Illness Chief Complaint: headache Primary Care Provider: Rosy Montoya MD Tanvir Langley is a 71yo male with history of cerebral amyloid angiopathy, recent TIA presenting with severe acute headache. Patient went to sleep around 10:30 PM and felt well. He woke at 01:30 with severe left sided headache and visual deficit, seeing "squiggly lines" in both eyes intermittently. He denies focal numbness/tingling/weakness. Denies confusion or facial droop. No additional complaints. Still with headache at this time. IV Tylenol given with minimal effect. Patient had a TIA 4 months ago. He reports occasional speech deficit as well as left foot drop since then. He also feels more fatigue and requires more sleep than he did before. Allergies Allergy/AdvReac Type Severity Reaction Status Date / Time aspirin AdvReac Intermediate Headache Verified 04/28/22 09:49 coumadin AdvReac Severe Uncoded 04/28/22 09:49 Home Medications Medication Instructions Recorded Confirmed Type magnesium oxide 500 mg capsule 500 mg PO DAILYBB 03/18/20 05/01/22 History zinc 50 mg tablet 50 mg PO QPM 03/18/20 04/28/22 History riboflavin (vitamin B2) 400 mg 400 mg PO QDL 08/19/20 05/01/22 History tablet atorvastatin 40 mg tablet (Lipitor) 40 mg PO QPM #90 tabs 05/10/21 05/01/22 Rx levothyroxine 150 mcg tablet 150 mcg PO QAM #90 tabs 05/10/21 05/01/22 Rx liothyronine 5 mcg tablet (Cytomel) 5 mcg PO DAILYBB #90 tabs 05/10/21 05/01/22 Rx metformin 500 mg tablet,extended 1,000 mg PO BID #180 tabs 05/10/21 05/01/22 Rx release 24 hr cholecalciferol (vitamin D3) 125 125 mcg PO DAILY 07/21/21 05/01/22 History mcg (5,000 unit) tablet (Vitamin D3) cyanocobalamin (vitamin B-12) 1,000 mcg PO DAILY 07/21/21 05/01/22 History 1,000 mcg tablet naproxen sodium 220 mg capsule 220 mg PO BID PRN Pain 07/21/21 04/28/22 History (Aleve) lancets 30 gauge (BD Ultra-Fine II #100 ea 08/18/21 04/28/22 Rx Lancets) amlodipine 10 mg-benazepril 20 mg 1 cap PO QAM #90 caps 08/29/21 05/01/22 Rx capsule (Lotrel) tamsulosin 0.4 mg capsule (Flomax) 0.8 mg PO QPM 12/27/21 05/01/22 History pantoprazole 40 mg tablet,delayed 40 mg PO QAM #90 tabs 01/19/22 05/01/22 Rx release semaglutide 1 mg/dose (4 mg/3 mL) 1 mg (0.75 mL) subcut WK #3 mL 01/19/22 05/01/22 Rx subcutaneous pen injector clopidogrel 75 mg tablet (Plavix) 75 mg PO DAILY #90 tabs 03/15/22 05/01/22 Rx Past Med/Surg History Medical History Arm paresthesia, left BPH (benign prostatic hyperplasia) Diabetes mellitus, type 2 Elevated PSA Fatty liver Hearing deficit History of COVID-19 loss of taste/smell--no issues now 02/2020 HTN (hypertension) Hyperlipidemia Hypothyroidism (acquired) Insect bite (nonvenomous), right ankle, initial encounter Left sided numbness Left spastic hemiparesis Loose bowel movements due to metformin IR Lumbar facet joint syndrome Lumbar spondylosis Mild acid reflux Myofascial pain Obesity Osteoarthritis Sleep apnea CPAP Stroke-like symptom Surgical History History of cardiac cath 2000 in [place]--no stents History of colonoscopy History of esophagogastroduodenoscopy (EGD) History of tooth extraction S/P appendectomy S/P cholecystectomy Family History Father Esophageal cancer Colorectal cancer Other No family history of adverse response to anesthesia Denies family history of Ovarian cancer Prostate cancer Myocardial infarction Breast cancer Social History Smoking Status: Never smoker Second Hand Exposure: Yes ( A CHILD); Hx Alcohol Use: Yes Alcohol type: beer Hx Substance Use: No Preferred Language: Uzbek Communication Ability: Effective Visual Impairment: No Limitations Hearing Ability: Normal Helpdesk Analyst Required: No Beliefs That Will Affect Care: None marital status: Current Living Situation: Spouse current occupational status: retired Feels Safe at Home: Yes Dental Care, Regularly: Yes Physical Activity Frequency: 1-2 Times per Week Seatbelt Use: always Assistive Devices: CPAP, Glasses and Hearing Aid - Bilateral Review of Systems Review of Systems: All systems reviewed & are unremarkable except as noted in HPI & below Physical Exam Physical Exam: General: patient resting comfortably, NAD, non-toxic in appearance, AA&O x 4 Skin: warm, dry, intact, no rashes or lesions HEENT: NC/AT, PERRL, EOMI, anicteric sclera, conjunctiva without injection, external ear normal to inspection and nontender, nares patent, moist mucus membranes, dentition intact, no oropharyngeal lesions, neck supple, trachea midline, no LAD, no thyromegaly, no JVD Heart: +S1/S2, regular, no m/r/g Lungs: equal air entry bilaterally, no rales/rhonchi/wheezes Abd: +BS, soft, NT/ND, no masses/organomegaly/ascites Ext: warm, 2+ pulses in UE/LE bilaterally, no clubbing/cyanosis or edema Neuro: speech clear and appropriate, CN II - XII intact, nonfocal, patient AA&O x 4, no facial droop, sensation to light mildly decreased on LUE, moving all extremities on command with equal strength 5/5 Results & Data Results & Data ([facility]) Vital Signs (Past 12 Hours) Vital Signs Temp Pulse Pulse Resp BP BP Pulse Ox 05/01/22 04:03 68 18 136/90 97 05/01/22 03:39 69 17 125/76 97 05/01/22 03:39 68 18 125/76 96 05/01/22 02:42 36.8 C 78 18 129/84 97 O2 Del Method 05/01/22 04:03 Room Air 05/01/22 03:39 Room Air 05/01/22 03:39 Room Air 05/01/22 02:42 Room Air Laboratory Results Laboratory Results WBC 6.22 K/ul (4.8-10.8) 05/01/22 03:00 RBC 5.00 M/uL (4.63-6.08) 05/01/22 03:00 Hgb 15.3 g/dl (14.0-18.0) 05/01/22 03:00 Hct 44.2 % (40.1-51.0) 05/01/22 03:00 MCV 88.4 fL (80.0-100.0) 05/01/22 03:00 MCH 30.6 pg (25.0-34.0) 05/01/22 03:00 MCHC 34.6 g/dL (32.0-36.0) 05/01/22 03:00 RDW Std Deviation 40.9 fL (36.4-46.3) 05/01/22 03:00 RDW Coeff of Nanda 12.7 % (11.5-14.5) 05/01/22 03:00 Plt Count 193 K/uL (130-400) 05/01/22 03:00 MPV 9.1 fL (9.4-12.4) L 05/01/22 03:00 Immature Gran % (Auto) 0.6 % 05/01/22 03:00 Neut % (Auto) 61.6 % 05/01/22 03:00 Lymph % (Auto) 28.0 % 05/01/22 03:00 Graham % (Auto) 7.4 % 05/01/22 03:00 Eos % (Auto) 1.6 % 05/01/22 03:00 Baso % (Auto) 0.8 % 05/01/22 03:00 Neut # (Auto) 3.83 K/uL (1.4-6.5) 05/01/22 03:00 Lymph # (Auto) 1.74 K/uL (1.2-3.4) 05/01/22 03:00 Graham # (Auto) 0.46 K/uL (0.24-0.82) 05/01/22 03:00 Eos # (Auto) 0.10 K/uL (0-0.50) 05/01/22 03:00 Baso # (Auto) 0.05 K/uL (0-0.2) 05/01/22 03:00 Immature Gran # (Auto) 0.04 K/uL (0.00-0.02) H 05/01/22 03:00 PT 11.7 Seconds (9.0-12.0) 05/01/22 03:00 INR 1.1 (0.9-1.1) 05/01/22 03:00 APTT 30.6 Seconds (21.0-31.0) 05/01/22 03:00 PTT Ratio 1.1 05/01/22 03:00 Sodium 137 mmol/L (136-145) 05/01/22 03:00 Potassium 3.9 mmol/L (3.5-5.1) 05/01/22 03:00 Chloride 106 mmol/L (98-107) 05/01/22 03:00 Carbon Dioxide 27 mmol/L (21-32) 05/01/22 03:00 Anion Gap 4 (3-11) 05/01/22 03:00 BUN 17 mg/dl (6-23) 05/01/22 03:00 Creatinine 0.91 mg/dl (0.6-1.4) 05/01/22 03:00 Est Cr Clr Drug Dosing 79.1 ml/min 05/01/22 03:00 Est GFR ( Amer) 99.3 ml/min 05/01/22 03:00 Est GFR (Non-Af Amer) 85.7 ml/min 05/01/22 03:00 BUN/Creatinine Ratio 18.7 (10-20) 05/01/22 03:00 Glucose 155 mg/dl (70-99(Fasting)) H 05/01/22 03:00 Calcium 9.5 mg/dl (8.5-10.1) 05/01/22 03:00 Total Bilirubin 0.6 mg/dl (0.2-1.0) 05/01/22 03:00 AST 10 U/L (13-39) L 05/01/22 03:00 ALT 17 U/L (7-52) 05/01/22 03:00 Alkaline Phosphatase 88 U/L (34-104) 05/01/22 03:00 Total Protein 6.8 gm/dl (6.0-8.3) 05/01/22 03:00 Albumin 4.5 gm/dl (3.4-5.0) 05/01/22 03:00 Globulin 2.3 gm/dl (2.5-4.0) L 05/01/22 03:00 Albumin/Globulin Ratio 2.0 (0.9-2) 05/01/22 03:00 SARS-CoV-2, RNA, NAAT NEGATIVE (NEGATIVE) 05/01/22 03:59 Code Status & VTE Plan VTE Prophylaxis Plan VTE Prophylaxis will be ordered: Yes PG Care Time/CCT Total # of Minutes Spent Total Time Spent with Patient: Total time spent is greater than 50% in coordination of care (as documented) at patient's floor/unit and/or counseling patient: Coding Level of Care Code 03579 INT INP/OBS CARE 3/75MIN Diagnoses Headache R51.9 Cerebral amyloid angiopathy E85.4; I68.0 History of TIA (transient ischemic attack) Z86.73 HTN (hypertension) I10 BPH (benign prostatic hyperplasia) N40.0 Diabetes mellitus E11.9 Sleep apnea G47.30 Hyperlipidemia E78.5 Hypothyroidism (acquired) E03.9
[2022-05-01] MEDS ORDERED: OPTIRAY 320 500ml IV ONE (05:26)
--- NOTE | 2022-05-01 06:14 | CT Scan Report ---
CT angio head w con, CT angio neck with con, CT head/brain wo con CLINICAL HISTORY: 71 years-old Male with Headache, history of amyloid. Acute headache COMPARISON STUDY: Brain MRI 12/28/2021, CTA head and neck 12/27/2021, chest CT 06/18/2020. TECHNIQUE: Unenhanced axial CT scan of the brain is performed. Subsequently, following the IV adminis tration of 112 cc of Optiray, CT angiogram of the head and neck was performed from the aortic arch to the skull apex. Images are reviewed in the axial, sagittal, and coronal planes. 3-D MIPS images are created and assessed. IV contrast was administered without complication. All measurements were obtain ed according to NASCET criteria. A dose lowering technique was utilized adhering to the principles of ALARA. CT DOSE: 612.44 mGy.cm (accession [id number]), 663.41 mGy.cm (accession [id number]) FINDINGS: CT BRAIN: There is no acute intracranial hemorrhage, midline shift, hydrocephalus, intracranial mass, territori al ischemia or abnormal extra-axial collections. No abnormal intra-axial or extra-axial enhancement. Age-related involutional changes with chronic microvascular ischemic disease. Mastoid air cells and middle ear cavities are clear. No calvarial fracture. Paranasal sinuses are clear. CT ANGIOGRAM OF THE HEAD AND NECK: Unremarkable appearance of the thoracic aorta arch. Patency of the innominate and imaged subclavian a rteries. The common carotid arteries are patent. Atherosclerotic plaque of the left greater than righ t carotid bulbs and proximal cervical segments of the internal carotid arteries. Internal carotid art eries are also patent. The bilateral anterior and middle cerebral arteries are also patent. Dominant left vertebral artery. The vertebrobasilar system and posterior cerebral arteries are widely patent. There is no aneurysm, high-grade stenosis, or proximal branch occlusion identified. Dural sinuses carmela ear patent. Stable 6 mm groundglass nodule of the left upper lobe, image 50 series 4. Tiny subpleural solid nodul es of the right lung apex. 1.1 x 1.9 cm ovoid soft tissue attenuating structure involves the deep lobe of the right parotid glan d on image 343 series 4, stable from prior. Degenerative changes of the cervical spine are noted. IMPRESSION: 1. No acute intracranial abnormality. 2. Unremarkable CTA of the head and neck. 3. 6 mm groundglass nodule of the left upper lobe is stable dating back to 06/18/2020 4. 1.1 x 1.9 cm soft tissue attenuating structure involving the deep lobe of the right parotid gland is also unchanged from prior and may represent a lymph node. ACT 112: Negative or not required by law. The above report was generated using voice recognition software. It may contain grammatical, syntax o r spelling errors. Electronically signed by: Neno Santoyo M.D. 05/01/2022 6:12 AM
[2022-05-01] MEDS ORDERED: DEXTROSE 50% 50 ML SYRINGE IV PRN (08:42)
[2022-05-01] MEDS ORDERED: MoRPHine SULFATE 2 MG/ML CARP IV PRN (08:42)
[2022-05-01] MEDS ORDERED: GLUCOSE 10 TAB/TUBE PO PRN (08:42)
[2022-05-01] MEDS ORDERED: CARBOHYDRATES FOR HYPOGLYCEMIA PO PRN (08:42)
[2022-05-01] MEDS ORDERED: GLUCOSE 40% GEL 15 GM TUBE PO PRN (08:42)
[2022-05-01] MEDS ORDERED: GLUCAGON FOR INJ 1 MG VIAL SQ PRN (08:42)
[2022-05-01] MEDS ORDERED: LIOTHYRONINE SODIUM 5 MCG TAB PO SCH (09:00)
[2022-05-01] MEDS ORDERED: PANTOprazole 40 MG TAB PO SCH (09:00)
[2022-05-01] MEDS ORDERED: amLODIPine BESYLATE 5 MG TAB PO SCH (09:00)
[2022-05-01] MEDS ORDERED: LANTUS PER UNIT CHARGE SQ SCH (09:00)
[2022-05-01] MEDS ORDERED: MAGNESIUM OXIDE 400 MG TAB PO SCH (09:00)
[2022-05-01] MEDS ORDERED: LEVOTHYROXINE SODIUM 150 MCG TABLET PO SCH (09:00)
[2022-05-01] MEDS: INSULIN ASPART PER UNIT SC SCH ×2 (09:28→11:13)
--- NOTE | 2022-05-01 09:44 | Neurology Consultation ---
Date of Consultation May 01, 2022 Assessment & Plan (1) Headache: (2) Cerebrovascular disease: (3) History of TIA (transient ischemic attack): (4) Cerebral amyloid angiopathy: Plan This patient carries a diagnosis of cerebral amyloid angiopathy and has a history of headaches in the past. This problem has been quite stable over the last 5 or more years. He is not getting headaches. The patient had a history of a prolonged TIA back in December but has not had a stroke. He has moderate old small vessel ischemic disease and was stable on clopidogrel. He developed 1 of the worst headache he has ever had early this morning, waking him from sleep. CT scan of the head showed no hemorrhage and CT angiography of the head and neck were unremarkable. On exam he has no focal findings, meningeal signs or encephalopathy and feels back to his baseline except for a very slight headache currently. Recommendations: 1. MRI of the brain 2. I can follow as an outpatient. Overall, I spent a total of 75 minutes with this case including review of records, review of CT films, direct evaluation the patient bedside, and discussion of the case with the patient and RN at bedside, and Dr. Moore including differential diagnosis and treatment options. History of Present Illness Reason for Consultation: Patient is a 71-year-old, who I was asked to see at the request of Dr. Disla, for neurologic consultation regarding new onset severe headache. Requesting Physician: Dr. Disla Attending Physician: Sylvia Disla, DO History of Present Illness I 1st saw this patient December 27 when he had acute onset left sided weakness, numbness, and tingling, arm greater than leg. His syndrome was consistent with a small stroke but 2 MRIs did not show any acute stroke. He did have moderate old small-vessel ischemic disease. Patient carries a diagnosis of cerebral amyloid angiopathy. This was made 8 years or so in [facility] by a neurologist. He had hemorrhages in his MRI of varying degrees and was treated with 1 year of high dose steroids. He was having headaches at that time and these headaches resolved. For years he has not had any symptoms or headaches , until December 26. he was sent home on 81 mg aspirin tablet daily. He started getting headaches and he was switched to clopidogrel 75 mg a day. He has been on that for the rest of 2021 into this year and has done fine with no headaches or any issues until today. He was last seen in our office on April 28 and was doing quite well without issues or symptoms. The patient went to bed around 2200 hours April 30. He was feeling well and had no headache or pain. He woke up at 1:30 a.m. today with a severe left-sided headache. It was 10/10 and the worst headache he can remember. It was steady when from his eye back along the left side of his head down to his left neck. Did not have nausea, vomiting, photophobia, or phonophobia. He was awake and alert and had no confusion, speech problems, vision issues, weakness, numbness, or pain. His balance was normal. He arrived to the emergency room today at 2:42 a.m., with a temperature of 36.8, pulse 78 regular, respiratory rate 18, blood pressure 129/84, and O2 saturation 97%. Neurologic examination was unremarkable with no focal findings, meningeal signs, or encephalopathy. CBC and Chem profile were largely unremarkable. CT angiography of the head and neck plus a CT scan of the head were all normal without hemorrhage or vessel anomalies. He was given Tylenol and this helped his headache. Currently ( 09), the patient has a headache of a 1-2/10. He feels quite well and wants to go home. Allergies Allergy/AdvReac Type Severity Reaction Status Date / Time aspirin AdvReac Intermediate Headache Verified 04/28/22 09:49 coumadin AdvReac Severe Uncoded 04/28/22 09:49 Home Medications Medication Instructions Recorded Confirmed Type magnesium oxide 500 mg capsule 500 mg PO DAILYBB 03/18/20 05/01/22 History zinc 50 mg tablet 50 mg PO QPM 03/18/20 04/28/22 History riboflavin (vitamin B2) 400 mg 400 mg PO QDL 08/19/20 05/01/22 History tablet atorvastatin 40 mg tablet (Lipitor) 40 mg PO QPM #90 tabs 05/10/21 05/01/22 Rx levothyroxine 150 mcg tablet 150 mcg PO QAM #90 tabs 05/10/21 05/01/22 Rx liothyronine 5 mcg tablet (Cytomel) 5 mcg PO DAILYBB #90 tabs 05/10/21 05/01/22 Rx metformin 500 mg tablet,extended 1,000 mg PO BID #180 tabs 05/10/21 05/01/22 Rx release 24 hr cholecalciferol (vitamin D3) 125 125 mcg PO DAILY 07/21/21 05/01/22 History mcg (5,000 unit) tablet (Vitamin D3) cyanocobalamin (vitamin B-12) 1,000 mcg PO DAILY 07/21/21 05/01/22 History 1,000 mcg tablet naproxen sodium 220 mg capsule 220 mg PO BID PRN Pain 07/21/21 04/28/22 History (Aleve) lancets 30 gauge (BD Ultra-Fine II #100 ea 08/18/21 04/28/22 Rx Lancets) amlodipine 10 mg-benazepril 20 mg 1 cap PO QAM #90 caps 08/29/21 05/01/22 Rx capsule (Lotrel) tamsulosin 0.4 mg capsule (Flomax) 0.8 mg PO QPM 12/27/21 05/01/22 History pantoprazole 40 mg tablet,delayed 40 mg PO QAM #90 tabs 01/19/22 05/01/22 Rx release semaglutide 1 mg/dose (4 mg/3 mL) 1 mg (0.75 mL) subcut WK #3 mL 01/19/22 05/01/22 Rx subcutaneous pen injector clopidogrel 75 mg tablet (Plavix) 75 mg PO DAILY #90 tabs 03/15/22 05/01/22 Rx Patient History Medical History Arm paresthesia, left BPH (benign prostatic hyperplasia) Diabetes mellitus, type 2 Elevated PSA Fatty liver Hearing deficit History of COVID-19 loss of taste/smell--no issues now 02/2020 HTN (hypertension) Hyperlipidemia Hypothyroidism (acquired) Insect bite (nonvenomous), right ankle, initial encounter Left sided numbness Left spastic hemiparesis Loose bowel movements due to metformin IR Lumbar facet joint syndrome Lumbar spondylosis Mild acid reflux Myofascial pain Obesity Osteoarthritis Sleep apnea CPAP Stroke-like symptom Surgical History History of cardiac cath 2000 in [place]--no stents History of colonoscopy History of esophagogastroduodenoscopy (EGD) History of tooth extraction S/P appendectomy S/P cholecystectomy Family History Father Esophageal cancer Colorectal cancer Other No family history of adverse response to anesthesia Denies family history of Ovarian cancer Prostate cancer Myocardial infarction Breast cancer Social History Smoking Status: Unknown if ever smoked Second Hand Exposure: Yes ( A CHILD); Hx Alcohol Use: No Hx Substance Use: No Preferred Language: Amharic Communication Ability: Effective Visual Impairment: No Limitations Hearing Ability: Normal 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 Beliefs That Will Affect Care: None marital status: Current Living Situation: Spouse current occupational status: retired Other Information That Helps Us Care for You: No Feels Safe at Home: Yes Safety Concerns: Feels Safe At This Time Dental Care, Regularly: Yes Physical Activity Frequency: 1-2 Times per Week Seatbelt Use: always Assistive Devices: CPAP, Glasses and Hearing Aid - Bilateral Review of Systems Constitutional: no fever, no fatigue and no weakness Eyes: no diplopia, no eye pain and no worsening vision Ear, Nose, Mouth, Throat: no ear pain, no tinnitus, no hearing loss, no dizziness, no snoring, no hoarseness and no dysphagia Respiratory: no cough and no dyspnea Cardiovascular: no chest pain, no palpitations and no lightheadedness Gastrointestinal: no abdominal pain, no nausea and no vomiting Musculoskeletal: no back pain, no neck pain, no radicular pain, no joint pain and no myalgia Integumentary: no rash and no lesions Neurologic: + headache(s); no gait abnormality, no localized weakness, no generalized weakness, no tingling, no numbness, no tremor(s), no abnormal movements, no abnormal speech, no confusion and no memory loss Psychiatric: no depression, no irritability, no anxiety, no difficulty concentrating, no confusion and no hallucinations Endocrine: no fatigue and no flushing Hematologic / Lymphatic: no easy bleeding and no easy bruising Allergy / Immunological: no urticaria and no problem reported Exam (Neuro) Physical Exam: The patient is right-handed. The patient is awake, alert, and attentive. Speech is normal without any aphasia or dysarthria. The patient can name objects, repeat phrases, and has normal spontaneous speech. Mentation and thought processes are intact, with orientation to person, place and time, and normal fund of knowledge. Attention and concentration are normal. Mood and affect are normal and appropriate. General appearance and grooming are normal. Short and long-term memory are intact. The discs are sharp with positive venous pulsations bilaterally. There are no exudates, hemorrhages, or blood vessel changes seen. Pupils are 4 mm bilaterally and reactive to light. Extraocular eye muscles are intact without nystagmus. Visual acuity and visual byrne seem normal grossly to confrontation. There are no deficits to sensation in the face in all 3 distributions of the fifth cranial nerve bilaterally. Corneal reflexes are positive bilaterally. F acial strength and symmetry was normal bilaterally. Hearing seems normal bilaterally. Palate moves well without asymmetry. There is normal sternocleidomastoid and trapezius (shoulder shrug) strength bilaterally. Tongue is midline with good strength bilaterally. Neck has a full range of motion without discomfort. There are no cervical bruits bilaterally. There are no cranial or ocular bruits. Heart is without murmur. There is a regular rhythm and rate. Cervical, thoracic, and lumbar spine are nontender to palpation. Gait was not tested but stance sitting up in bed is quite normal. Nursing reported normal gait to the bathroom. With outstretched arms there is no drift. There are no resting, postural, or action tremors. There is no ataxia with finger to nose testing. There is good facility in the hands. No other abnormal involuntary movements are noted. Motor strength is 5/5 diffusely in the arms bilaterally including deltoids, biceps, triceps, brachioradialis, wrist flexors and extensors, miller apprentice, and intrinsic hand muscles. Motor strength is 5/5 diffusely in the legs bilaterally including hip flexors, quadriceps, hamstrings, gastrocnemius, tibialis anterior, tibialis posterior, and Peroneii muscles. Toe extensors are normal and there is good bulk in the extensor digitorum brevis muscles bilaterally. The limbs have good tone without rigidity or spasticity. There is no atrophy noted in the muscles. Muscle bulk is normal, there is no tenderness to palpation, no myotonia to percussion, and no fasciculations seen. Sensory examination is intact to touch and pin throughout all 4 limbs diffusely. Reflexes are 1/4 in the biceps, triceps, brachioradialis, quadriceps, and Achilles tendons bilaterally. There is no clonus bilaterally. Toes are downgoing with plantar stimulation bilaterally. Peripheral pulses are present and of normal quality distally in all 4 limbs. There is no peripheral edema noted in the limbs. Results & Data ([facility]) Vital Signs (Past 12 Hours) Vital Signs Temp Pulse Pulse Resp BP BP Pulse Ox 05/01/22 08:46 05/01/22 07:00 70 18 148/89 H 96 05/01/22 06:00 77 16 151/95 H 96 05/01/22 05:30 70 15 149/82 H 98 05/01/22 05:00 66 16 144/86 H 96 05/01/22 04:31 67 19 136/92 96 05/01/22 04:03 68 18 136/90 97 05/01/22 03:39 69 17 125/76 97 05/01/22 03:39 68 18 125/76 96 05/01/22 02:42 36.8 C 78 18 129/84 97 Pulse Ox O2 Del Method O2 Del Method 05/01/22 08:46 95 Room Air 05/01/22 07:00 Room Air 05/01/22 06:00 Room Air 05/01/22 05:30 Room Air 05/01/22 05:00 Room Air 05/01/22 04:31 Room Air 05/01/22 04:03 Room Air 05/01/22 03:39 Room Air 05/01/22 03:39 Room Air 05/01/22 02:42 Room Air PG Care Time/CCT Total # of Minutes Spent Total Time Spent with Patient: Total time spent is greater than 50% in coordination of care (as documented) at patient's floor/unit and/or counseling patient: Coding Level of Care Code 70816 INT INP/OBS CARE 3/75MIN Diagnoses Headache R51.9 Cerebrovascular disease I67.9 History of TIA (transient ischemic attack) Z86.73 Cerebral amyloid angiopathy E85.4; I68.0 Time Spent (min) 75
[2022-05-01] MEDS ORDERED: ACETAMINOPHEN 500 MG TAB PO SCH (12:00)
[2022-05-01] MEDS ORDERED: GADOBUTROL 65ML VIAL IV ONE (12:56)
--- NOTE | 2022-05-01 13:12 | Magnetic Resonance Report ---
MR brain wo/w con CLINICAL HISTORY: Severe JAMES, history of Amyloid TECHNIQUE: Multiplanar and multisequence MR images of the brain were obtained prior to and following administration of gadolinium contrast. Comparison: Comparison is made to MRI brain 12/28/2021 FINDINGS: No abnormal restricted diffusion is identified. Foci of T2 and FLAIR hyperintensity are noted in the paraventricular areas consistent with chronic small vessel ischemic disease. Ex vacuo ventriculomegal y and sulcal enlargement is noted compatible with diffuse encephalomalacia. No mass or abnormal enhan cement is seen. There is no mass effect or midline shift. There is no evidence of acute intraparenchy mal hemorrhage. No extra axial fluid collections are seen. The corpus callosum, pituitary gland, and cerebellar tonsils appear grossly unremarkable. Flow voids of the major intracranial arterial vessels are identified. The imaged portions of the para nasal sinuses, mastoid air cells, and orbits are unremarkable. IMPRESSION: Numerous T2/flair hyperintensities in the white matter compatible with microvascular ischemic disease . Of note, no significant susceptibility artifact to suggest recent hemorrhage in this patient with h istory of amyloidosis. ACT 112: Negative or not required by law. Electronically signed by: Scotty Dunn M.D. 05/01/2022 1:10 PM
--- NOTE | 2022-05-01 15:50 | Discharge Summary ---
Date of Service May 01, 2022 Admission HPI Per Admitting Provider Tanvir Langley is a 71yo male with history of cerebral amyloid angiopathy, recent TIA presenting with severe acute headache. Patient went to sleep around 10:30 PM and felt well. He woke at 01:30 with severe left sided headache and visual deficit, seeing "squiggly lines" in both eyes intermittently. He denies focal numbness/tingling/weakness. Denies confusion or facial droop. No additional complaints. Still with headache at this time. IV Tylenol given with minimal effect. Patient had a TIA 4 months ago. He reports occasional speech deficit as well as left foot drop since then. He also feels more fatigue and requires more sleep than he did before. Principal Diagnosis headache Discharge Exam The patient is awake, alert and oriented 3, well developed and well nourished, normocephalic and atraumatic, lying in bed and in no acute distress. HEENT--PERRL, EOMI, mucous membranes and oropharynx mildly dry Neck--supple. No JVD. No bruits. Thyroid normal, trachea midline, no adenopathy. Heart--normal S1 and S2. No murmurs, rubs or gallops. Lungs--clear bilaterally, no respiratory distress, no accessory muscle use. Abdomen--normal bowel sounds and soft. Mild epigastric and left sided abdominal pain Extremities--no cyanosis or clubbing. No edema. Dermatologic--normal skin turgor, normal color, no abnormal lymph nodes, no rash. Neurologic--cranial nerves II through XII grossly intact. Rheumatologic--normal range of motion. Psychiatric--normal affect. Discharge Data Allergies Allergy/AdvReac Type Severity Reaction Status Date / Time aspirin AdvReac Intermediate Headache Verified 04/28/22 09:49 coumadin AdvReac Severe Uncoded 04/28/22 09:49 Consultations 05/01/22 03:56 ED Decision to Admit Stat 05/01/22 08:42 Consult Neurology Routine Ordered Studies 05/01/22 02:40 CT head/brain wo con Stat 05/01/22 04:55 CT angio head w con Stat CT angio neck with con Stat 05/01/22 08:42 MRI Brain [MR brain wo/w con] Urgent Hospital Course (1) Headache: 71yo male with history of cerebral amyloid angiopathy, recent TIA several months ago presenting with severe, acute JAMES that woke him from sleep. No seizure, no neck stillness, no neurological deficits. Headache persists despite IV Tylenol. CT of the head with formal read pending. -Admit to medical with telemetry -Await CT of the head -Check CTA of the head and neck - MRI brain also wnl -Neurology evaluated, ok with d/c home (2) Cerebral amyloid angiopathy: Chronic -Imaging ordered as above -Neuro checks per protocol -Blood pressure maintenance -Magnesium oxide daily (3) History of TIA (transient ischemic attack): Patient with TIA several months ago. Reports ongoing fatigue since, occasional left foot drop and speech deficit -Holding Plavix until further imaging -Continue Atorvastatin (4) HTN (hypertension): Maintain blood pressure 140-160mmhg goal -Amlodipine 10mg po daily -Hold Benazepril -Monitor BP (5) BPH (benign prostatic hyperplasia): Chronic -Flomax (6) Diabetes mellitus: Chronic. Overall well controlled. Last [id number]=3.8 on 01/03/22 -Insulin basal, bolus -Goal blood sugar 110-140 (7) Sleep apnea: CPAP (8) Hyperlipidemia: Chronic -Continue Atorvastatin (9) Hypothyroidism (acquired): Chronic -Continue Synthroid -Continue Liothyronine Total Time Total Time Spent Total Time Spent (In Minutes): 35 Discharge Plan Discharge Items Patient Disposition: Home - Self-Care Reason For Visit: HEADACHE Discharge Diagnosis: headache Activity: Resume your previous activity Non-emergency contact: Primary Care Provider and Neurologist Call non-emergency contact if: you have any medication questions and your symptoms worsen Follow-up/Referrals: Rosy Montoya MD [Primary Care Provider] - Diet: Regular Addtl Attending Provider Instructions: please make appointment to follow up with your PCP and neurologist Pending Studies at Discharge: No Stand-Alone Forms: My [employer], Smoking Cessation Medications and DC Order Prescriptions: Continued riboflavin (vitamin B2) 400 mg tablet 400 mg PO QDL amlodipine-benazepril [Lotrel] 10-20 mg capsule 1 cap PO QAM Qty: 90 3RF clopidogrel [Plavix] 75 mg tablet 75 mg PO DAILY Qty: 90 1RF (DME) lancets [BD Ultra-Fine II Lancets] 30 gauge misc See Rx Instructions .Route Qty: 100 0RF Rx Instructions: As directed semaglutide 1 mg/dose (4 mg/3 mL) pen injector 1 mg subcut WK Qty: 3 5RF Rx Instructions: q Brian pantoprazole 40 mg tablet,delayed release (DR/EC) 40 mg PO QAM Qty: 90 1RF levothyroxine 150 mcg tablet 150 mcg PO QAM Qty: 90 1RF atorvastatin [Lipitor] 40 mg tablet 40 mg PO QPM Qty: 90 3RF liothyronine [Cytomel] 5 mcg tablet 5 mcg PO DAILYBB Qty: 90 1RF metformin 500 mg tablet extended release 24 hr 1,000 mg PO BID Qty: 180 3RF zinc 50 mg Tablet 50 mg PO QPM magnesium oxide 500 mg Capsule 500 mg PO DAILYBB cyanocobalamin (vitamin B-12) 1,000 mcg Tablet 1,000 mcg PO DAILY cholecalciferol (vitamin D3) [Vitamin D3] 125 mcg (5,000 unit) Tablet 125 mcg PO DAILY naproxen sodium [Aleve] 220 mg Capsule 220 mg PO BID PRN (Reason: Pain) tamsulosin [Flomax] 0.4 mg capsule 0.8 mg PO QPM Discharge Orders: Discharge Order (Routine); Ordered 05/01/22 Ordered By: Emily Moore Admission Data Admit Date/Time: 05/01/22 04:55 Attending Provider: Sylvia Disla Admit Provider: Sylvia Disla Primary Care Provider: Rosy Montoya V. Other Providers: Sylvia Disla ; Rajendra Mckeon Coding Level of Care Code HOSP INP/OBS DISCH >30 MIN Diagnoses Headache R51.9 Cerebral amyloid angiopathy E85.4; I68.0 History of TIA (transient ischemic attack) Z86.73 HTN (hypertension) I10 BPH (benign prostatic hyperplasia) N40.0 Diabetes mellitus E11.9 Sleep apnea G47.30 Hyperlipidemia E78.5 Hypothyroidism (acquired) E03.9 Time Spent (min) 35
[2022-05-01] MEDS ORDERED: ATORVASTATIN 40 MG TAB PO SCH (21:00)
[2022-05-01] MEDS ORDERED: TAMSULOSIN HCL 0.4 MG CAP PO SCH (21:00)
--- NOTE | 2022-05-01 22:14 | Electrocardiogram Report ---
Test Reason : Blood Pressure : / mmHG Vent. Rate : 067 BPM Atrial Rate : 067 BPM P-R Int : 160 ms QRS Dur : 102 ms QT Int : 406 ms P-R-T Axes : -20 -29 026 degrees QTc Int : 429 ms Normal sinus rhythm Minimal voltage criteria for LVH, may be normal variant Nonspecific ST and T wave abnormality Abnormal ECG When compared with ECG of 28-DEC-2021 06:41, No significant change was found Confirmed by Benji Hoang ([id number]) on 05/01/2022 10:13:25 PM Referred By: REFERRED SELF Confirmed By:Benji Hoang
[2022-05-02] MEDS ORDERED: LEVOTHYROXINE SODIUM 150 MCG TABLET PO SCH (06:30)
== END 2022-05-01 16:33 | disposition home or self-care (01) ==
LOC: EDINP 02:36 → ED 02:36 → EDINP 08:38